=== PATIENT | male | born 1950 | race American Indian/Alaskan Native ===

== ENCOUNTER 2016-12-21 19:38 | Emergency (ER) | payer MEDICARE ==
[2016-12-21 21:19] LABS: Alanine Aminotransferase 15 units/L (7-56); Albumin 4.2 g/dL (3.9-5); Albumin/Globulin Ratio 1.2 %; Alkaline Phosphatase 67 units/L (35-129); Anion Gap 19 mmol/L; BUN/Creatinine Ratio 14.54; Blood Urea Nitrogen 16 mg/dL (9-20); Calcium 9.2 mg/dL (8.4-10.2); Carbon Dioxide 24 mmol/L (22-30); Chloride 102.5 mmol/L (98-107); Glucose 119 mg/dL (75-100); Potassium 4.6 mmol/L (3.6-5.0); Sodium 141 mmol/L (137-145); Total Protein 7.6 g/dL (6.3-8.2)
--- NOTE | 2016-12-21 21:20 | XRay Report ---
FINAL REPORT EXAM: XR CHEST 1V AP HISTORY: Medical Clearance Psych TECHNIQUE: upright single view chest PRIORS: None. FINDINGS: Cardiac and mediastinal contours are unremarkable. No focal pulmonary infiltrate is identified. No pleural fluid collection seen. Pulmonary vasculature is unremarkable. IMPRESSION: Negative single-view chest
[2016-12-21 21:28] LABS: Basophils % (Auto) 0.6 % (0.0-1.8); Eosinophils % (Auto) 3.8 % (0.0-4.3); Hematocrit 39.9 % (35.5-45.6); Hemoglobin 13.5 gm/dl (11.8-15.2); Mean Corpuscular HGB Conc 34 % (32-34); Mean Corpuscular Hemoglobin 33 pg (28-32); Mean Corpuscular Volume 97 fl (84-94); Platelet Count 202 K/mm3 (140-440)
[2016-12-22 01:07] LABS: Urine Drugs of Abuse Note Disclamer
[2016-12-22 01:32] LABS: Bilirubin,Urine NEG (Negative); Blood,Urine NEG (Negative); Ketones,Urine NEG (Negative); Leukocyte Esterase,Urine NEG (Negative); Nitrite,Urine NEG (Negative); Protein,Urine <15 mg/dL mg/dL (Negative)
--- NOTE | 2016-12-22 02:37 | Emergency Department Report ---
ED Psych HPI - General Chief Complaint: Psych Stated Complaint: EVALUATION VIOLENT OUTBURST Time Seen by Provider: 12/22/16 01:05 Source: patient Mode of arrival: Ambulatory Limitations: Other - History of Present Illness Initial Comments: 66-year-old male with a past medical history dementia and gud-hfjtmxj-tqglgcizi diabetes presents to the hospital with violent outbursts. Patient appears to be only oriented to self at this time. When asked direct questions he rambles on pulls off due to various tangents. He denies any physical pain. His states that despite taking his medication he continues to have violent outbursts and lunges her. has to lock herself in another room for protection. She said one month ago she had to call the police and he was taken to [facility]. Patient was admitted to [facility] times one week and started on Seroquel 25 mg. Patient continues to have outbursts despite this medication. He was evaluated by outpatient psychiatrist 2 days ago and started on Prozac and Seroquel was increased to 50 mg. There is no improvement in his behavior. also states that in the past patient was on a dementia specific medication when they lived in [place] but she misplaced it. She cannot recall the name of this medication. - Related Data Home Medications Medication Instructions Recorded Confirmed Last Taken FLUoxetine HCL [FLUoxetine] 40 mg PO QAM 12/22/16 12/22/16 Unknown Famotidine [Pepcid] 40 mg PO BID 12/22/16 12/22/16 Unknown Quetiapine Fumarate [SEROquel] 50 mg PO QHS 12/22/16 12/22/16 Unknown metFORMIN [Glucophage] 500 mg PO BID 12/22/16 12/22/16 Unknown Allergies Allergy/AdvReac Type Severity Reaction Status Date / Time No Known Allergies Allergy Unverified 12/21/16 20:16 ED Review of Systems ROS: Stated complaint: EVALUATION VIOLENT OUTBURST Other details as noted in HPI Comment: Unobtainable due to pts medical conditions (dementia, see hpi) ED Past Medical Hx - Past Medical History Previous Medical History?: Yes Hx CVA: Yes (3 small stroke) Hx Psychiatric Treatment: Yes (Dementia; Homicidal) - Surgical History Past Surgical History?: Yes Additional Surgical History: hernia repair - Social History Smoking Status: Never Smoker Substance Use Type: None - Medications Home Medications: Home Medications Medication Instructions Recorded Confirmed Last Taken Type FLUoxetine HCL [FLUoxetine] 40 mg PO QAM 12/22/16 12/22/16 Unknown History Famotidine [Pepcid] 40 mg PO BID 12/22/16 12/22/16 Unknown History Quetiapine Fumarate [SEROquel] 50 mg PO QHS 12/22/16 12/22/16 Unknown History metFORMIN [Glucophage] 500 mg PO BID 12/22/16 12/22/16 Unknown History ED Physical Exam - General Limitations: No Limitations - Other Other exam information: General: No limitations, patient is alert in no acute distress Head exam: Atraumatic, normocephalic Eyes exam: Normal appearance ENT: Moist mucous membrane, normal oropharynx Neck exam: Normal inspection Respiratory exam: Clear to auscultation bilateral, no wheezes, rales, crackles Cardiovascular: Normal rate and rhythm, normal heart sounds Abdomen: Soft, nondistended, and nontender, with normal bowel sounds, no rebound, or guarding Extremity: Full range of motion normal inspection no deformity Back: Normal Inspection, full range of motion, no tenderness Neurologic: Alert, oriented to self, cranial nerves intact, no motor or sensory deficit Psychiatric: Patient had aggressive rambles on unrelated topics. When asked if he knew where he was he stated he was going to your care and they continued talking about [place] but his thought process was difficult to follow. No aggression during examination Skin: Warm, dry, intact ED Course Vital Signs 12/21/16 12/22/16 12/22/16 20:14 00:37 00:40 Temperature 98.2 F 97.6 F Pulse Rate 94 H 97 H Respiratory 18 16 16 Rate Blood Pressure 146/100 Blood Pressure 159/88 [Left] O2 Sat by Pulse 99 99 99 Oximetry - Reevaluation(s) Reevaluation #1: 12/22/16 05:40 pt stable - Consultations Consultation #1: 12/22/16 mh consult ED Medical Decision Making - Lab Data Result diagrams: 12/21/16 20:46 12/21/16 20:46 Lab Results 12/21/16 12/21/16 12/21/16 Range/Units 20:46 20:46 20:46 WBC 7.0 (4.5-11.0) K/mm3 RBC 4.10 (3.65-5.03) M/mm3 Hgb 13.5 (11.8-15.2) gm/dl Hct 39.9 (35.5-45.6) % MCV 97 H (84-94) fl MCH 33 H (28-32) pg MCHC 34 (32-34) % RDW 14.0 (13.2-15.2) % Plt Count 202 (140-440) K/mm3 Lymph % (Auto) 21.9 (13.4-35.0) % [place] % (Auto) 8.8 H (0.0-7.3) % Eos % (Auto) 3.8 (0.0-4.3) % Baso % (Auto) 0.6 (0.0-1.8) % Lymph # 1.5 (1.2-5.4) K/mm3 [place] # 0.6 (0.0-0.8) K/mm3 Eos # 0.3 (0.0-0.4) K/mm3 Baso # 0.0 (0.0-0.1) K/mm3 Seg Neutrophils % 64.9 (40.0-70.0) % Seg Neutrophils # 4.5 (1.8-7.7) K/mm3 Sodium 141 (137-145) mmol/L Potassium 4.6 (3.6-5.0) mmol/L Chloride 102.5 (98-107) mmol/L Carbon Dioxide 24 (22-30) mmol/L Anion Gap 19 mmol/L BUN 16 (9-20) mg/dL Creatinine 1.1 (0.8-1.5) mg/dL Estimated GFR > 60 ml/min BUN/Creatinine Ratio 14.54 % Glucose 119 H (75-100) mg/dL Calcium 9.2 (8.4-10.2) mg/dL Total Bilirubin 0.50 (0.1-1.2) mg/dL AST 21 (5-40) units/L ALT 15 (7-56) units/L Alkaline Phosphatase 67 (35-129) units/L Total Protein 7.6 (6.3-8.2) g/dL Albumin 4.2 (3.9-5) g/dL Albumin/Globulin Ratio 1.2 % TSH 2.840 (0.270-4.200) mlU/mL Urine Color (Yellow) Urine Turbidity (Clear) Urine pH (5.0-7.0) Ur Specific [place] (1.003-1.030) Urine Protein (Negative) mg/dL Urine Glucose (UA) (Negative) mg/dL Urine Ketones (Negative) mg/dL Urine Blood (Negative) Urine Nitrite (Negative) Urine Bilirubin (Negative) Urine Urobilinogen (<2.0) mg/dL Ur Leukocyte Esterase (Negative) Urine WBC (Auto) (0.0-6.0) /HPF Urine RBC (Auto) (0.0-6.0) /HPF U Epithel Cells (Auto) (0-13.0) /HPF Urine Opiates Screen Urine Methadone Screen Ur Barbiturates Screen Ur Phencyclidine Scrn Ur Amphetamines Screen U Benzodiazepines Scrn Urine Cocaine Screen U Marijuana (THC) Screen Drugs of Abuse Note 12/22/16 12/22/16 Range/Units 00:57 00:57 WBC (4.5-11.0) K/mm3 RBC (3.65-5.03) M/mm3 Hgb (11.8-15.2) gm/dl Hct (35.5-45.6) % MCV (84-94) fl MCH (28-32) pg MCHC (32-34) % RDW (13.2-15.2) % Plt Count (140-440) K/mm3 Lymph % (Auto) (13.4-35.0) % [place] % (Auto) (0.0-7.3) % Eos % (Auto) (0.0-4.3) % Baso % (Auto) (0.0-1.8) % Lymph # (1.2-5.4) K/mm3 [place] # (0.0-0.8) K/mm3 Eos # (0.0-0.4) K/mm3 Baso # (0.0-0.1) K/mm3 Seg Neutrophils % (40.0-70.0) % Seg Neutrophils # (1.8-7.7) K/mm3 Sodium (137-145) mmol/L Potassium (3.6-5.0) mmol/L Chloride (98-107) mmol/L Carbon Dioxide (22-30) mmol/L Anion Gap mmol/L BUN (9-20) mg/dL Creatinine (0.8-1.5) mg/dL Estimated GFR ml/min BUN/Creatinine Ratio % Glucose (75-100) mg/dL Calcium (8.4-10.2) mg/dL Total Bilirubin (0.1-1.2) mg/dL AST (5-40) units/L ALT (7-56) units/L Alkaline Phosphatase (35-129) units/L Total Protein (6.3-8.2) g/dL Albumin (3.9-5) g/dL Albumin/Globulin Ratio % TSH (0.270-4.200) mlU/mL Urine Color Yellow (Yellow) Urine Turbidity Clear (Clear) Urine pH 5.0 (5.0-7.0) Ur Specific [place] 1.021 (1.003-1.030) Urine Protein <15 mg/dl (Negative) mg/dL Urine Glucose (UA) Neg (Negative) mg/dL Urine Ketones Neg (Negative) mg/dL Urine Blood Neg (Negative) Urine Nitrite Neg (Negative) Urine Bilirubin Neg (Negative) Urine Urobilinogen 2.0 (<2.0) mg/dL Ur Leukocyte Esterase Neg (Negative) Urine WBC (Auto) 2.0 (0.0-6.0) /HPF Urine RBC (Auto) 1.0 (0.0-6.0) /HPF U Epithel Cells (Auto) 2.0 (0-13.0) /HPF Urine Opiates Screen Presumptive negative Urine Methadone Screen Presumptive negative Ur Barbiturates Screen Presumptive negative Ur Phencyclidine Scrn Presumptive negative Ur Amphetamines Screen Presumptive negative U Benzodiazepines Scrn Presumptive negative Urine Cocaine Screen Presumptive negative U Marijuana (THC) Screen Presumptive negative Drugs of Abuse Note Disclamer - Medical Decision Making WIll continued home meds. 1013 and transferred form signed. Awaiting psychiatric symptoms. Medically cleared - Differential Diagnosis psychosis, dementia Critical Care Time: No Critical care attestation.: If time is entered above; I have spent that time in minutes in the direct care of this critically ill patient, excluding procedure time. ED Disposition Clinical Impression: Dementia, Violent behavior, Medical clearance for psychiatric admission, Non- insulin dependent type 2 diabetes mellitus Disposition: DC/TX-65 PSY HOSP/PSY UNIT Is pt being admited?: No Does the pt Need Aspirin: No Condition: Stable Time of Disposition: 05:41 (awaiting acceptance)
[2016-12-22] MEDS: PEPCID PO SCH (10:30)
[2016-12-22] MEDS: PROzac PO SCH (10:30)
[2016-12-22] MEDS: GLUCOPHAGE PO SCH ×2 (10:42→17:51)
--- NOTE | 2016-12-22 18:16 | Consultation ---
History of Present Illness - Reason for Consult Consult date: 12/22/16 Reason for consult: Mental Health Evaluation Requesting physician: ORIANA US - Chief Complaint Chief complaint: "AMS" - History of Present Psychiatric Illness 66-year-old male with a past medical history dementia and oof-impgpco-tjeitvhae diabetes presents to the hospital with violent outbursts. Today patient is disorganized and confused during the assessment. Patient is a poor historian. No gestures of SI/HI's and AVH's. Medications and Allergies Allergies Allergy/AdvReac Type Severity Reaction Status Date / Time No Known Allergies Allergy Unverified 12/21/16 20:16 Home Medications Medication Instructions Recorded Confirmed Last Taken Type FLUoxetine HCL [FLUoxetine] 40 mg PO QAM 12/22/16 12/22/16 Unknown History Famotidine [Pepcid] 40 mg PO BID 12/22/16 12/22/16 Unknown History Quetiapine Fumarate [SEROquel] 50 mg PO QHS 12/22/16 12/22/16 Unknown History metFORMIN [Glucophage] 500 mg PO BID 12/22/16 12/22/16 Unknown History Active Meds: Active Medications Famotidine (Pepcid) 40 mg PO BID [facility] Last Admin: 12/22/16 10:30 Dose: 40 mg Fluoxetine HCl (Prozac) 40 mg PO QAM [facility] Last Admin: 12/22/16 10:30 Dose: 40 mg Metformin HCl (Glucophage) 500 mg PO BIDDIAB [facility] Last Admin: 12/22/16 17:51 Dose: 500 mg Quetiapine Fumarate (Seroquel) 50 mg PO QHS [facility] Past psychiatric history - Past Medical History Past Medical History: other (Dementia) Past Surgical History: Other (Unable to obtain) - past Psychiatric treatment and history psychiatric treatment history: Unable to obtain a psy or fam psy hx. - Social History Social history: Mental Status Exam - Vital signs Last Vital Signs Temp 98.1 F 12/22/16 09:32 Pulse 116 H 12/22/16 09:32 Resp 16 12/22/16 09:33 BP 138/96 12/22/16 09:32 Pulse Ox 98 12/22/16 09:33 - Exam Narrative exam: Unable to compete the MSE. Results Result Diagrams: 12/21/16 20:46 12/21/16 20:46 Abnormal lab results 12/21/16 12/21/16 Range/Units 20:46 20:46 MCV 97 H (84-94) fl MCH 33 H (28-32) pg [place] % (Auto) 8.8 H (0.0-7.3) % Glucose 119 H (75-100) mg/dL All other labs normal. Assessment and Plan Assessment and plan: Impression: Historical Dx: Dementia. Today patient is disorganized and confused during the assessment. UDS negative Recommendation/Plan: 1. Frequently reorient patient and involve him/her in their care (simple explanations of procedures, tests, medications). 2. Lights on and shades open during daytime hours. 3. Try to avoid unnecessary interruptions to sleep during nighttime hours. 4. Obtain glasses, hearing aids from home if patient uses these at baseline. 5. Avoid medications that may exacerbate delirium (especially narcotics, benzodiazepines, barbiturates, ambien, lunesta, and medications with excessive anticholinergic properties).Bipolar disorder most recent episode depressed. 6. Haldol 2 mg PO Q6hrs for agitation.
[2016-12-22] MEDS ORDERED: HALDOL PO PRN (18:27)
[2016-12-23] MEDS: GLUCOPHAGE PO SCH (08:46)
[2016-12-23] MEDS: PEPCID PO SCH (10:24)
[2016-12-23] MEDS: PROzac PO SCH (10:24)
[2016-12-23 11:20] VITALS: BP 152/95
--- NOTE | 2016-12-23 15:11 | Progress Note ---
Subjective - Reason for Consult Consult date: 12/23/16 Reason for consult: Psychiatry Follow-up - Chief Complaint Chief complaint: "AMS" 66-year-old male with a past medical history dementia and [id number]-[id number] diabetes presents to the hospital with violent outbursts. Today patient was calm , but disorganized and delusional. He stated that his and son was in the [place] during our conversation. No gestures of SI/HI's. Spoke with Guerda Carter [phone] and she stated that patient was dx last year with dementia. She wasn't able to tell me the medications her took for dementia. Mental Status Exam - Vital signs Last Vital Signs Temp 99.2 F 12/23/16 11:18 Pulse 90 12/23/16 11:18 Resp 20 12/23/16 11:19 BP 152/95 12/23/16 11:18 Pulse Ox 97 12/23/16 11:19 - Exam Narrative exam: MSE: Appearance: calm Behavior: regular eye contact Speech: rumbling Mood: unable to assess Affect: flat Thought Process: tangential Thought Content: denies SI/HI's and AVH's, delusional, disorganize Motor Activity: lying in bed Cognition: A/Ox 1 Insight: impaired Judgment: impaired Assessment and Plan Impression: Historical Dx: Dementia. Today patient was calm, but disorganized and delusional. UDS negative. This is an irreversible Neurocognitive DO. Recommendation/Plan: Give Guerda Carter [phone] a call before patient is transferred. 1. Frequently reorient patient and involve him/her in their care (simple explanations of procedures, tests, medications). 2. Lights on and shades open during daytime hours. 3. Try to avoid unnecessary interruptions to sleep during nighttime hours. 4. Obtain glasses, hearing aids from home if patient uses these at baseline. 5. Avoid medications that may exacerbate delirium (especially narcotics, benzodiazepines, barbiturates, ambien, lunesta, and medications with excessive anticholinergic properties).Bipolar disorder most recent episode depressed. 6. Haldol 2 mg PO Q6hrs for agitation.
== END 2016-12-23 16:45 ==
LOC: ED 19:38
DX: F03.90 Unspecified dementia, unspecified severity, without behavioral disturbance, psychotic disturbance, mood disturbance, and anxiety (principal); R45.6 Violent behavior; E11.9 Type 2 diabetes mellitus without complications; I63.9 Cerebral infarction, unspecified
CPT/HCPCS: 36415; 71010; 80053; 80307; 81001; 84443; 85025

== ENCOUNTER 2017-01-14 13:15 | Emergency (ER) | payer MEDICARE ==
[2017-01-14 15:23] LABS: Alanine Aminotransferase 14 units/L (7-56); Albumin 4.5 g/dL (3.9-5); Albumin/Globulin Ratio 1.1 %; Alkaline Phosphatase 68 units/L (35-129); Anion Gap 20 mmol/L; BUN/Creatinine Ratio 14.16; Blood Urea Nitrogen 17 mg/dL (9-20); Calcium 9.7 mg/dL (8.4-10.2); Carbon Dioxide 27 mmol/L (22-30); Chloride 94.8 mmol/L (98-107); Glucose 100 mg/dL (75-100); Potassium 4.3 mmol/L (3.6-5.0); Sodium 137 mmol/L (137-145); Total Protein 8.5 g/dL (6.3-8.2)
[2017-01-14 15:57] LABS: Basophils % (Auto) 0.5 % (0.0-1.8); Eosinophils % (Auto) 5.1 % (0.0-4.3); Hematocrit 48.6 % (35.5-45.6); Hemoglobin 16.7 gm/dl (11.8-15.2); Mean Corpuscular HGB Conc 34 % (32-34); Mean Corpuscular Hemoglobin 33 pg (28-32); Mean Corpuscular Volume 97 fl (84-94); Platelet Count 219 K/mm3 (140-440); Red Blood Count 5.01 M/mm3 (3.65-5.03); Red Cell Distribution Width 13.6 % (13.2-15.2); White Blood Count 7.8 K/mm3 (4.5-11.0)
[2017-01-14] MEDS ORDERED: HALDOL IM ONE (16:52)
--- NOTE | 2017-01-14 16:57 | Emergency Department Report ---
HPI - General Chief Complaint: Medical Clearance Time Seen by Provider: 01/14/17 15:25 - HPI HPI: 66-year-old -Citizen Of The [place] male presents the emergency department with his with the complaint that the patient is not eating and has not eaten much solid food over the past 2 weeks. Patient apparently will only intake about 1 Ensure per day. He does have a history of dementia and was recently at [facility] for behavioral disturbance. He was discharged from there on medication, Haldol and Ativan. says that he's been doing very well regarding the behavioral disturbances and aggressive behavior but she brought him in because he is not eating. She contacted psychiatrist to at first prescribed higher doses of the medication but then also said that he needed to be medically cleared to take these medications. He does not have a current primary care physician. ED Past Medical Hx - Past Medical History Previous Medical History?: Yes Hx CVA: Yes (3 small stroke) Hx Psychiatric Treatment: Yes (Dementia; Homicidal) Hx Dementia: Yes - Surgical History Past Surgical History?: Yes Additional Surgical History: hernia repair - Social History Smoking Status: Never Smoker Substance Use Type: None - Medications Home Medications: Home Medications Medication Instructions Recorded Confirmed Last Taken Type FLUoxetine HCL [FLUoxetine] 40 mg PO QAM 12/22/16 12/22/16 Unknown History Famotidine [Pepcid] 40 mg PO BID 12/22/16 12/22/16 Unknown History Quetiapine Fumarate [SEROquel] 50 mg PO QHS 12/22/16 12/22/16 Unknown History metFORMIN [Glucophage] 500 mg PO BID 12/22/16 12/22/16 Unknown History ED Review of Systems ROS: Stated complaint: NOT EATING Other details as noted in HPI Comment: Unobtainable due to pts medical conditions Physical Exam - Physical Exam Vital Signs: Vital Signs 01/14/17 14:22 Temperature 98 F Pulse Rate 71 Respiratory 16 Rate Blood Pressure 116/68 O2 Sat by Pulse 100 Oximetry Physical Exam: GENERAL: The patient is well-developed well-nourished. HEENT: Normocephalic. Atraumatic. Extraocular motions are intact. Patient has moist mucous membranes. Pupils equal reactive to light bilaterally. NECK: Supple. Trachea is midline. CHEST/LUNGS: Clear to auscultation. There is no respiratory distress noted. HEART/CARDIOVASCULAR: Regular. There is no tachycardia. There is no gallop rub or murmur. ABDOMEN: Abdomen is soft, nontender. Patient has normal bowel sounds. There is no abdominal distention. SKIN: Skin is warm and dry. NEURO: The patient is awake, a [address] but not time. He has some tangential speech towards [place], where he is from. Patient follows most commands. The patient has no focal neurologic deficits. The patient has normal speech and gait. MUSCULOSKELETAL: There is no tenderness or deformity. There is no limitation range of motion. There is no evidence of acute injury. ED Course Vital Signs 01/14/17 14:22 Temperature 98 F Pulse Rate 71 Respiratory 16 Rate Blood Pressure 116/68 O2 Sat by Pulse 100 Oximetry ED Medical Decision Making - Lab Data Result diagrams: 01/14/17 15:47 01/14/17 14:47 - Medical Decision Making 66-year-old male presents the emergency department, brought in by his , because he is not eating much other than occasional Ensure. Labs are mostly unremarkable dehydration, protein calorie malnutrition or any other acute process at this time. He was seen by the behavioral/crisis therapist who agrees that the patient's behavior is consistent with dementia and he does not appear to be having any psychosis and does not appear to be a candidate be made a 1013 at this time. Vital stable. His ED course. With this patient mostly needs is a placement to a nursing care facility. However the says she is unwilling to have him go to any extended care or nursing care facility at this time. She is concerned how he is going to take his medication. He was given 1 dose of the medication here in the emergency department and is recommended that she put it in his Ensure. He was given multiple referrals for primary care physicians and encouraged to follow-up with the psychiatrist as well. To make sure he does not go back towards his behavioral disturbances. However she has been encouraged bring him back to the emergency department immediately with any worsening of his symptoms, inability to keep down any liquids, or any acute distress. Critical Care Time: No Critical care attestation.: If time is entered above; I have spent that time in minutes in the direct care of this critically ill patient, excluding procedure time. ED Disposition Clinical Impression: Decreased appetite Dementia Qualifiers: Dementia type: unspecified type Dementia behavioral disturbance: without behavioral disturbance Qualified Code(s): F03.90 - Unspecified dementia without behavioral disturbance Disposition: DC-01 TO HOME OR SELFCARE Is pt being admited?: No Condition: Stable Instructions: Dementia (ED) Additional Instructions: Please continue to give him ensure a few times a day if possible. If necessary , but his medication in the Ensure. Continue to encourage him to increase his oral intake. Return to the emergency department with any worsening of symptoms or any acute distress. It should be noted that the labs obtained today in the emergency department do not show any signs of dehydration, malnutrition or any significant abnormalities. Referrals: PRIMARY CARE, [Primary Care Provider] - 3-5 Days VANDANA TATUM MD, PHD [Staff Physician] - 3-5 Days JO GONZALEZ MD [Staff Physician] - 3-5 Days MONSERRAT RODRIGUEZ MD [Staff Physician] - 3-5 Days Time of Disposition: 16:59
[2017-01-14 17:47] VITALS: BP 120/68
== END 2017-01-14 17:25 | disposition home or self-care (01) ==
LOC: ED 13:15
DX: R63.0 Anorexia (principal); F03.90 Unspecified dementia, unspecified severity, without behavioral disturbance, psychotic disturbance, mood disturbance, and anxiety; Z86.73 Personal history of transient ischemic attack (TIA), and cerebral infarction without residual deficits
CPT/HCPCS: 36415; 80053; 82962; 85025; 96372; 99284; J1630

== ENCOUNTER 2017-01-16 23:14 | Inpatient (IN) | payer MEDICARE ==
[2017-01-16] MEDS ORDERED: NACL 0.9% 1000 ML 1,000 ML ONE (23:56)
[2017-01-17] MEDS ORDERED: ATIVAN ONE (00:04)
[2017-01-17] MEDS ORDERED: ATIVAN IV ONE (00:09)
--- NOTE | 2017-01-17 00:21 | Emergency Department Report ---
HPI - General Chief Complaint: Altered Mental Status Time Seen by Provider: 01/17/17 00:09 - HPI HPI: This is a 66-year-old Afro-[place] male presents the emergency department from home with complaint of a unresponsive episode in which the patient was awake with eyes open but was nonverbal and not following commands to his . The patient does have a history of dementia but usually is AAO 1-2. He appears to have gone back towards his normal baseline mental status upon presentation to the hospital. There were no complaints of any fever but the patient did present with a low-grade fever. Due to the patient's current medical status and his history of dementia he is a poor historian himself. The patient was recently here 2-3 days ago when the was having trouble getting him to eat enough food and therefore also take his medications. Before that the patient had been at [facility] for behavioral disturbances. ED Past Medical Hx - Past Medical History Hx CVA: Yes (3 small stroke) Hx Psychiatric Treatment: Yes (Dementia; Homicidal) Hx Dementia: Yes - Surgical History Additional Surgical History: hernia repair - Social History Smoking Status: Never Smoker Substance Use Type: None - Medications Home Medications: Home Medications Medication Instructions Recorded Confirmed Last Taken Type FLUoxetine HCL [FLUoxetine] 40 mg PO QAM 12/22/16 01/16/17 Unknown History Famotidine [Pepcid] 40 mg PO BID 12/22/16 01/16/17 Unknown History Quetiapine Fumarate [SEROquel] 50 mg PO QHS 12/22/16 01/16/17 Unknown History metFORMIN [Glucophage] 500 mg PO BID 12/22/16 01/16/17 Unknown History Aricept 5 mg PO HS 01/16/17 01/16/17 Unknown History Folic Acid 1 mg PO DAILY 01/16/17 01/16/17 Unknown History Haloperidol 0.25 mg PO HS 01/16/17 01/16/17 Unknown History LORazepam 0.5 mg PO BID 01/16/17 01/16/17 Unknown History Memantine HCl 10 mg PO BID 01/16/17 01/16/17 Unknown History amLODIPine 5 mg PO DAILY 01/16/17 01/16/17 Unknown History ED Review of Systems ROS: Stated complaint: AMS/FEVER Other details as noted in HPI Comment: Unobtainable due to pts medical conditions Physical Exam - Physical Exam Vital Signs: Vital Signs 01/16/17 23:43 Temperature 100.6 F H Pulse Rate 115 H Respiratory 16 Rate Blood Pressure 106/73 O2 Sat by Pulse 98 Oximetry Physical Exam: GENERAL: The patient is well-developed well-nourished. HEENT: Normocephalic. Atraumatic. Extraocular motions are intact. Patient has moist mucous membranes. Pupils equal reactive to light bilaterally. NECK: Supple. Trachea is midline. CHEST/LUNGS: Clear to auscultation. There is no respiratory distress noted. HEART/CARDIOVASCULAR: Regular. There is mild tachycardia. There is no gallop rub or murmur. ABDOMEN: Abdomen is soft, nontender. Patient has normal bowel sounds. There is no abdominal distention. SKIN: Skin is warm and dry. NEURO: The patient is awake, alert. AAO [address] but not time. The patient has no focal neurologic deficits. Patient has pressured speech and occasional behavioral outbursts. MUSCULOSKELETAL: There is no tenderness or deformity. There is no limitation range of motion. There is no evidence of acute injury. ED Course Vital Signs 01/16/17 23:43 Temperature 100.6 F H Pulse Rate 115 H Respiratory 16 Rate Blood Pressure 106/73 O2 Sat by Pulse 98 Oximetry ED Medical Decision Making - Lab Data Result diagrams: 01/17/17 00:16 01/17/17 00:16 - EKG Data -: EKG Interpreted by Me EKG shows normal: sinus rhythm, axis, intervals, QRS complexes, ST-T waves ( nonspecific ST-T waves) Rate: tachycardia (109 bpm) - EKG Data When compared to previous EKG there are: previous EKG unavailable Interpretation: nonspecific ST-T wave jesus - Radiology Data Radiology results: report reviewed, image reviewed interpreted by me: Chest x-ray did not show any acute process. Heart is normal shape and size. No effusions. No pneumothorax. No signs of pneumonia seen. CT of the head shows chronic involutional changes but otherwise no acute intracranial process. - Medical Decision Making 66-year-old male presents to the emergency department after he was found to have an unresponsive episode by his . By the time he got to the emergency department he has back to his normal dementia behavior. However patient has a fever, tachycardia, leukocytosis, lactic acidosis. There is no source of infection found yet but he does have SIRS. He was covered with some antibiotics and blood cultures were sent. CT of the head does not show any bleed, shift, mass or any acute process. Chest x-ray does not show any pneumonia or any other acute process. He will be admitted to the hospital for further evaluation and treatment and has been accepted for admission by the hospitalist, Dr Holloway. - Differential Diagnosis Sepsis, SIRS, Dementia, CVA, TIA Critical Care Time: No Critical care attestation.: If time is entered above; I have spent that time in minutes in the direct care of this critically ill patient, excluding procedure time. ED Disposition Clinical Impression: Lactic acidosis, SIRS (systemic inflammatory response syndrome) Altered mental status Qualifiers: Altered mental status type: unspecified Qualified Code(s): R41.82 - Altered mental status, unspecified Dementia Qualifiers: Dementia type: unspecified type Dementia behavioral disturbance: without behavioral disturbance Qualified Code(s): F03.90 - Unspecified dementia without behavioral disturbance Leukocytosis Qualifiers: Leukocytosis type: unspecified Qualified Code(s): D72.829 - Elevated white blood cell count, unspecified Disposition: DC-09 OP ADMIT IP TO THIS HOSP Is pt being admited?: Yes Condition: Fair Time of Disposition: 02:35
[2017-01-17] MEDS ORDERED: TYLENOL PR ONE (00:23)
[2017-01-17 00:37] LABS: Urine Drugs of Abuse Note Disclamer
[2017-01-17 00:49] LABS: Hematocrit 40.5 % (35.5-45.6); Hemoglobin 13.2 gm/dl (11.8-15.2); Mean Corpuscular HGB Conc 33 % (32-34); Mean Corpuscular Hemoglobin 33 pg (28-32); Mean Corpuscular Volume 100 fl (84-94); Platelet Count 156 K/mm3 (140-440); Red Blood Count 4.05 M/mm3 (3.65-5.03); Red Cell Distribution Width 13.9 % (13.2-15.2)
--- NOTE | 2017-01-17 00:59 | Cat Scan Report ---
FINAL REPORT PROCEDURE: CT HEAD/BRAIN WO CON TECHNIQUE: Computerized tomography of the head was performed without contrast material. HISTORY: AMS COMPARISON: No prior studies are available for comparison. FINDINGS: Skull and scalp: Normal. Paranasal sinuses: Normal. Ventricles and subarachnoid spaces: There is moderate central and cortical atrophy. There is no hydrocephalus or asymmetry.. Cerebrum: No evidence of hemorrhage, acute infarction or mass. There is chronic periventricular deep white matter ischemic gliosis. Cerebellum and brainstem: No evidence of hemorrhage, acute infarction or mass. Vasculature: Normal. Comments: None. IMPRESSION: There are chronic involutional changes. There is no acute intracranial abnormality
[2017-01-17 01:05] LABS: Alanine Aminotransferase 11 units/L (7-56); Albumin 3.5 g/dL (3.9-5); Albumin/Globulin Ratio 1.3 %; Alkaline Phosphatase 49 units/L (35-129); Anion Gap 18 mmol/L; BUN/Creatinine Ratio 15.38; Blood Urea Nitrogen 20 mg/dL (9-20); Calcium 8.3 mg/dL (8.4-10.2); Carbon Dioxide 24 mmol/L (22-30); Glucose 134 mg/dL (75-100); Potassium 3.9 mmol/L (3.6-5.0); Sodium 139 mmol/L (137-145); Total Protein 6.3 g/dL (6.3-8.2)
[2017-01-17 01:05] LABS: Bilirubin,Urine NEG (Negative); Blood,Urine NEG (Negative); Ketones,Urine TR mg/dL (Negative); Leukocyte Esterase,Urine NEG (Negative); Mucus,Urine 3+ /HPF; Nitrite,Urine NEG (Negative); Protein,Urine <15 mg/dL mg/dL (Negative); RBC,Urine < 1.0 /HPF (0.0-6.0); WBC,Urine < 1.0 /HPF (0.0-6.0)
[2017-01-17] MEDS ORDERED: LEVAQUIN 750MG/150ML 750 MG/150 ML BAG IV ONE (02:12)
[2017-01-17] MEDS ORDERED: NACL 0.9% 1000 ML 1,000 ML IV ONE (02:25)
[2017-01-17] MEDS ORDERED: TYLENOL PO PRN (03:22)
[2017-01-17] MEDS ORDERED: VANCOMYCIN VIAL IV ONE (03:25)
[2017-01-17] MEDS ORDERED: ZOSYN/NS 4.5GM/100ML 4.5 GM/100 ML VIAL IV SCH (03:26)
[2017-01-17] MEDS ORDERED: ZOSYN/NS 4.5GM/100ML 4.5 GM/100 ML VIAL IV ONE (03:44)
[2017-01-17] MEDS ORDERED: NACL 0.9% 1000 ML 1,000 ML IV SCH (04:00)
[2017-01-17] MEDS ORDERED: VANCOMYCIN PHARMACY TO DOSE IV SCH (04:00)
[2017-01-17] MEDS ORDERED: VANCOMYCIN 1,750 MG in NACL 0.9% 500 ML 500 ML IV ONE (04:00)
[2017-01-17] MEDS: ZOSYN/NS 4.5GM/100ML 4.5 GM/100 ML VIAL IV SCH ×2 (04:01→14:00)
[2017-01-17 04:26] LABS: Anisocytosis 1+; Basophils % (Manual) 0 % (0.0-1.8); Blastocytes % (Manual) 0 %; Diff Status Complete; Eosinophils % (Manual) 0 % (0.0-4.3); Hypochromasia Few
[2017-01-17 04:27] LABS: Toxic Granulation Few
--- NOTE | 2017-01-17 09:10 | XRay Report ---
Single view chest: Compared to 12/21/16. History: Fevers unknown source. Findings: Normal cardiomediastinal silhouette. Trachea is midline. No consolidation, pneumothorax or pleural effusion. Impression: No acute cardiopulmonary findings.
--- NOTE | 2017-01-17 09:31 | History and Physical Report ---
History of Present Illness Date of examination: 01/17/17 Date of admission: 01/17/17 02:35 History of present illness: This is a 66-year-old Afro-[place] male presents the emergency department from home with complaint of a unresponsive episode in which the patient was awake with eyes open but was nonverbal and not following commands to his . The patient does have a history of dementia and oriented to person only. He was at [facility] recently and was discharge back to home about a week ago. According to the he was getting aggresive and she was not able to give him any medication. She stated that his oral intake also very poor now a days and only preferring liquid food. According to he was complaining of abdominal pain but no episode of vomiting. When he was presented to the hospital He appears to have gone back towards his normal baseline mental status but continue to be confused and agitated. There were no complaints of any fever but the patient did present with a low-grade fever. Due to the patient's current medical status and his history of dementia he is a poor historian himself. He also noted to have elevated white count, he is getting admitted for further evaluation and management. Past medical History: h/o dementia, TIA Past surgical History: s/p right hernea repair Social History: Lives with family, denies any smoking, drinking and elicit drug abuse. Family History: Significant for dementia Review of System: Unable to obtain as patient is demented, confused, aggressive. Medications and Allergies Allergies Allergy/AdvReac Type Severity Reaction Status Date / Time No Known Allergies Allergy Unverified 12/21/16 20:16 Home Medications Medication Instructions Recorded Confirmed Last Taken Type FLUoxetine HCL [FLUoxetine] 40 mg PO QAM 12/22/16 01/16/17 Unknown History Famotidine [Pepcid] 40 mg PO BID 12/22/16 01/16/17 Unknown History Quetiapine Fumarate [SEROquel] 50 mg PO QHS 12/22/16 01/16/17 Unknown History metFORMIN [Glucophage] 500 mg PO BID 12/22/16 01/16/17 Unknown History Aricept 5 mg PO HS 01/16/17 01/16/17 Unknown History Folic Acid 1 mg PO DAILY 01/16/17 01/16/17 Unknown History Haloperidol 0.25 mg PO HS 01/16/17 01/16/17 Unknown History LORazepam 0.5 mg PO BID 01/16/17 01/16/17 Unknown History Memantine HCl 10 mg PO BID 01/16/17 01/16/17 Unknown History amLODIPine 5 mg PO DAILY 01/16/17 01/16/17 Unknown History Active Meds: Active Medications Acetaminophen (Tylenol) 650 mg PO Q6H PRN PRN Reason: fever or mild pain Famotidine (Pepcid) 20 mg IV BID [facility] Heparin Sodium (Porcine) (Heparin) 5,000 unit SUB-Q Q12HR [facility] Sodium Chloride (Nacl 0.9% 1000 Ml) 1,000 mls @ 75 mls/hr IV DIRECT [facility] Last Admin: 01/17/17 04:34 Dose: 75 mls/hr Piperacillin Sod/Tazobactam Sod (Zosyn/Ns 4.5gm/100ml) 4.5 gm in 100 mls @ 200 mls/hr IV Q8H [facility] PRN Reason: Protocol Last Admin: 01/17/17 04:01 Dose: Not Given Vancomycin HCl 1,250 mg/ (Sodium Chloride) 262.5 mls @ 166.667 mls/hr IV Q12H [facility] Vancomycin HCl (Vancomycin Pharmacy To Dose) 1 each IV PKCONSULT [facility] PRN Reason: Protocol Exam - Physical Exam Narrative exam: GENERAL: This is well-developed well-nourished AAM appears restrained. HEENT: Normocephalic. Atraumatic. Extraocular motions are intact. No conjunctival congestion or icterus. Patient has moist mucous membranes. External auditory canal and nares patent bilaterally. NECK: Supple. Trachea midline. No JVD, thyromagaly or lymphadenopathy. CHEST/LUNGS: Clear to auscultated bilaterally. There is no respiratory distress noted, breathing nonlabored. No wheezes crackles or rhonchi. HEART/CARDIOVASCULAR: Regular in rate and rhythm. PMI at the apex. There is no gallop rub or murmur. ABDOMEN: Abdomen is soft, nontender. Patient has normal bowel sounds. There is no abdominal distention. No organomagaly or rigidity. SKIN: There is no rash, no erythrema. There is no diaphoresis. Warm and dry. NEUROLOGY: The patient is awake, alert, and oriented to person only. does not appera to have any focal motor deficit. MUSCULOSKELETAL: No joint effusion or tenderness. Muscle strength equal bilaterally. No muscle wasting. EXTRIMITY: No edema, cyanosis or clubbing. PSYCH: Not Cooperative, agitated and restrained. - Constitutional Vitals: Temp Pulse Resp BP Pulse Ox 98.9 F 57 L 20 106/59 100 01/17/17 04:45 01/17/17 04:45 01/17/17 06:24 01/17/17 04:45 01/17/17 03:00 Results - Labs CBC & Chem 7: 01/18/17 09:48 01/18/17 09:48 Labs: Abnormal lab results 01/17/17 Range/Units 02:47 Lactic Acid 3.00 H* (0.7-2.0) mmol/L Assessment and Plan Acute encephalopathy - could be due to dementia and underlying infection - will treat the underlying cause - Ct head was unremarkable - patient is now on restrain - haldol ordered for as needed agitation Dementia with behavioral disturbance - will resume his home medications - placed on aricept and exelon - as needed haldol for agitation - psych consult placed SIRS - pt had low grade temp, elevated white count and tachycardia on admission - source of infection unknown - CXR clear, UA unremarkable - will place on empiric abx, will get blood cx and urine cx Abdominal pain - will order CT abdomen/pelvis Poor appetite - will place on full liquid diet as he prefers liquid food - will get nutrition consult DVT/GI Px - lovenox and PPI
[2017-01-17] MEDS: HEPARIN SUB-Q SCH ×2 (11:06→22:00)
[2017-01-17] MEDS: PEPCID IV SCH (13:10)
[2017-01-17] MEDS: VANCOMYCIN 1,250 MG in NACL 0.9% 250ML 250 ML IV SCH (16:49)
[2017-01-17] MEDS: HALDOL IM PRN (17:21)
[2017-01-17] MEDS: ARICEPT PO SCH (22:00)
[2017-01-17] MEDS ORDERED: MEMANTINE HCL 10 MG PO SCH (22:00)
[2017-01-17] MEDS: ATIVAN PO SCH (22:00)
[2017-01-17] MEDS: HALDOL PO SCH (22:00)
[2017-01-17] MEDS ORDERED: HALOPERIDOL PO SCH (22:00)
[2017-01-18] MEDS: PEPCID IV SCH (00:10)
[2017-01-18] MEDS: VANCOMYCIN 1,250 MG in NACL 0.9% 250ML 250 ML IV SCH (02:54)
[2017-01-18] MEDS: HALDOL IM PRN (08:55)
[2017-01-18] MEDS: ATIVAN PO SCH ×2 (11:00→22:43)
[2017-01-18] MEDS: NAMENDA XR PO SCH (11:00)
[2017-01-18] MEDS: HEPARIN SUB-Q SCH ×2 (11:00→22:43)
[2017-01-18] MEDS: PEPCID PO SCH ×2 (11:24→22:43)
[2017-01-18 12:01] LABS: Hematocrit 40.2 % (35.5-45.6); Hemoglobin 13.2 gm/dl (11.8-15.2); Mean Corpuscular HGB Conc 33 % (32-34); Mean Corpuscular Hemoglobin 33 pg (28-32); Mean Corpuscular Volume 99 fl (84-94); Platelet Count 155 K/mm3 (140-440); Red Blood Count 4.06 M/mm3 (3.65-5.03); Red Cell Distribution Width 13.7 % (13.2-15.2); White Blood Count 16.4 K/mm3 (4.5-11.0)
[2017-01-18] MEDS: ZOSYN/NS 4.5GM/100ML 4.5 GM/100 ML VIAL IV SCH ×3 (12:25→12:26)
--- NOTE | 2017-01-18 12:34 | Progress Note ---
Assessment and Plan Acute encephalopathy - could be due to dementia and underlying infection - will treat the underlying cause - Ct head was unremarkable - patient is now on restrain - haldol ordered for as needed agitation Dementia with behavioral disturbance - will continue his home medications - placed on aricept and exelon - as needed haldol for agitation - psych consult placed SIRS - pt had low grade temp, elevated white count and tachycardia on admission - source of infection unknown - CXR clear, UA unremarkable - placed on empiric iv abx but could not be given as he did not cooperate - blood and urine cx negative - will place him on oral augmentin for possible aspiration pneumonitis Abdominal pain - CT abdomen/pelvis pending Poor appetite - tolerating full liquid - will follow nutrition recommendation DVT/GI Px - heparin and PPI Subjective Date of service: 01/18/17 Interval history: Pt seen and examined he remained restrained was difficult to get iv line, iv abx was not given as pt was not cooperating, CT abdomen pelvis still pending pt tolerating diet and took oral meds Objective - Exam Narrative Exam: GENERAL: This is well-developed well-nourished AAM appears restrained. HEENT: Normocephalic. Atraumatic. Extraocular motions are intact. No conjunctival congestion or icterus. Patient has moist mucous membranes. External auditory canal and nares patent bilaterally. NECK: Supple. Trachea midline. No JVD, thyromagaly or lymphadenopathy. CHEST/LUNGS: Clear to auscultated bilaterally. There is no respiratory distress noted, breathing nonlabored. No wheezes crackles or rhonchi. HEART/CARDIOVASCULAR: Regular in rate and rhythm. PMI at the apex. There is no gallop rub or murmur. ABDOMEN: Abdomen is soft, nontender. Patient has normal bowel sounds. There is no abdominal distention. No organomagaly or rigidity. SKIN: There is no rash, no erythrema. There is no diaphoresis. Warm and dry. NEUROLOGY: The patient is awake, alert, and oriented to person only. does not appear to have any focal motor deficit. MUSCULOSKELETAL: No joint effusion or tenderness. Muscle strength equal bilaterally. No muscle wasting. EXTRIMITY: No edema, cyanosis or clubbing. PSYCH: confused. - Constitutional Vitals: Vital Signs - 12hr 01/18/17 09:29 Temperature 98.0 F Pulse Rate 102 H Respiratory 20 Rate Blood Pressure 110/67 O2 Sat by Pulse 95 Oximetry - Labs CBC & Chem 7: 01/18/17 09:48 01/18/17 09:48 Labs: Abnormal lab results 01/18/17 Range/Units 09:48 WBC 16.4 H (4.5-11.0) K/mm3 MCV 99 H (84-94) fl MCH 33 H (28-32) pg
[2017-01-18 13:01] LABS: Anion Gap 20 mmol/L; BUN/Creatinine Ratio 14.54; Blood Urea Nitrogen 16 mg/dL (9-20); Calcium 8.6 mg/dL (8.4-10.2); Carbon Dioxide 22 mmol/L (22-30); Chloride 100.1 mmol/L (98-107); Glucose 100 mg/dL (75-100); Potassium 3.8 mmol/L (3.6-5.0); Sodium 138 mmol/L (137-145)
[2017-01-18] MEDS: AUGMENTIN ORAL LIQD PO SCH ×2 (14:00→22:45)
--- NOTE | 2017-01-18 16:21 | Consultation ---
History of Present Illness - Reason for Consult Consult date: 01/18/17 Reason for consult: psychiatric evaluation - Chief Complaint Chief complaint: confused This is a 66-year-old AA male seen in the medical unit for psychiatric evaluation. He is in restraints and his speech is mostly incoherent. His nurse reports he has been confused, aggressive physically and was trying to take out his IV and hurt others. He presented the emergency department from home with complaint of a unresponsive episode in which the patient was awake with eyes open but was nonverbal and not following commands to his . The patient does have a history of dementia and a recent hospitalization at [facility] for behavioral disturbance. The record indicates the patient was recently here 2-3 days ago when the was having trouble getting him to eat enough food and therefore also take his medications. His is his support person. He states he is in [place] and is not . Per collateral reports he will need another placement. Medications and Allergies Allergies Allergy/AdvReac Type Severity Reaction Status Date / Time No Known Allergies Allergy Unverified 12/21/16 20:16 Home Medications Medication Instructions Recorded Confirmed Last Taken Type FLUoxetine HCL [FLUoxetine] 40 mg PO QAM 12/22/16 01/16/17 Unknown History Famotidine [Pepcid] 40 mg PO BID 12/22/16 01/16/17 Unknown History Quetiapine Fumarate [SEROquel] 50 mg PO QHS 12/22/16 01/16/17 Unknown History metFORMIN [Glucophage] 500 mg PO BID 12/22/16 01/16/17 Unknown History Aricept 5 mg PO HS 01/16/17 01/16/17 Unknown History Folic Acid 1 mg PO DAILY 01/16/17 01/16/17 Unknown History Haloperidol 0.25 mg PO HS 01/16/17 01/16/17 Unknown History LORazepam 0.5 mg PO BID 01/16/17 01/16/17 Unknown History Memantine HCl 10 mg PO BID 01/16/17 01/16/17 Unknown History amLODIPine 5 mg PO DAILY 01/16/17 01/16/17 Unknown History Active Meds: Active Medications Acetaminophen (Tylenol) 650 mg PO Q6H PRN PRN Reason: fever or mild pain Amoxicillin/Clavulanate Potassium (Augmentin Oral Liqd) 500 mg PO Q12HR [facility] Last Admin: 01/18/17 14:00 Dose: 500 mg Donepezil HCl (Aricept) 10 mg PO QHS [facility] Last Admin: 01/17/17 22:00 Dose: 10 mg Famotidine (Pepcid) 20 mg PO BID [facility] Last Admin: 01/18/17 11:24 Dose: 20 mg Haloperidol (Haldol) 0.25 mg PO QHS [facility] Last Admin: 01/17/17 22:00 Dose: 0.25 mg Haloperidol Lactate (Haldol) 2.5 mg IM Q6H PRN PRN Reason: Agitation Last Admin: 01/18/17 08:55 Dose: 2.5 mg Heparin Sodium (Porcine) (Heparin) 5,000 unit SUB-Q Q12HR [facility] Last Admin: 01/18/17 11:00 Dose: 5,000 unit Sodium Chloride (Nacl 0.9% 1000 Ml) 1,000 mls @ 75 mls/hr IV DIRECT [facility] Last Admin: 01/17/17 04:34 Dose: 75 mls/hr Lorazepam (Ativan) 0.5 mg PO BID [facility] Last Admin: 01/18/17 11:00 Dose: 0.5 mg Memantine (Namenda Xr) 14 mg PO DAILY [facility] Last Admin: 01/18/17 11:00 Dose: 14 mg Past psychiatric history - Past Medical History Past Medical History: other (CVA, dementia) Past Surgical History: hernia repair Mental Status Exam - Vital signs Last Vital Signs Temp 98.0 F 01/18/17 09:29 Pulse 102 H 01/18/17 10:00 Resp 20 01/18/17 10:00 BP 110/67 01/18/17 09:29 Pulse Ox 95 01/18/17 09:29 - Exam Orientation: person Mood: other (unable to obtain) Thought content: other (unable to obtain) Thought Process: Disoriented Perceptions: other (unable to obtain) Speech: incoherent Concentration: unable to pay attention Motor activity: restless Level of consciousness: confused Memory: Recent Impaired, Remote Impaired Appetite: decreased Interaction: other (no aggressive but in restraints. he responded to some questions) Results Result Diagrams: 01/18/17 09:48 01/18/17 09:48 Abnormal lab results 01/18/17 Range/Units 09:48 WBC 16.4 H (4.5-11.0) K/mm3 MCV 99 H (84-94) fl MCH 33 H (28-32) pg All other labs normal. Assessment and Plan Assessment and plan: Impression: possible delirium superimposed on dementia vs. dementia with behavioral disturbance dementia-unspecified type Recommendation: Avoid ativan and use haldol as currently ordered 2.5mg IV q 6 hours prn for agitation delirium precautions as follows: 1. Frequently reorient patient and involve him/her in their care (simple explanations of procedures, tests, medications). 2. Lights on and shades open during daytime hours. 3. Try to avoid unnecessary interruptions to sleep during nighttime hours. 4. Obtain glasses, hearing aids from home if patient uses these at baseline. 5. Avoid medications that may exacerbate delirium (especially narcotics, benzodiazepines, barbiturates, ambien, lunesta, and medications with excessive anticholinergic properties). Case management to look into alternative placements, such as SNF
[2017-01-18] MEDS: ARICEPT PO SCH (22:43)
[2017-01-18] MEDS: HALDOL PO SCH (22:43)
--- NOTE | 2017-01-19 02:06 | Admit Criteria Form ---
Admission Criteria Documentation: SYSTEMIC OR INFECTIOUS CONDITION Clinical Indications for Admission to Inpatient Care (Place 'X' for any and all applicable criteria): Hospital admission is needed for appropriate care of the patient because of ANY ONE of the following: [X]I. Hemodynamic instability indicated by ANY ONE of the following(1)(2)(3)( 4)(5): []a. Vital sign abnormality not readily corrected by appropriate treatment within 12 to 24 hours indicated by ANY ONE of the following: []i) Tachycardia that persists despite appropriate treatment []ii) Hypotension that persists despite appropriate treatment []iii) Orthostatic vital sign changes that persist despite appropriate treatment [X]b. Vital sign abnormality that is severe indicated by ANY ONE of the following: [X]i. Inadequate perfusion indicated by ANY ONE of the following : [X]1) Lactic acidosis (greater than 2 mmol/L) []2) New abnormal capillary refill (greater than 3 seconds) []3) Reduced urine output []4) New altered mental status []5) Myocardial Ischemia []ii. Mean arterial pressure [A] less than 60 mm Hg []iii. Mean arterial pressure[A] less than 70 mm Hg after 30 minutes of appropriate treatment (eg, fluid resuscitation) []iv. Sustained heart rate greater than 120 beats per minute in adult []v. IV inotropic or vasopressor medication required to maintain adequate blood pressure or perfusion []II. Systemic or infectious condition causing severe symptoms or findings not responsive to emergency or observation care treatment (as appropriate) indicated by ANY ONE of the following: []a. Cardiac arrhythmias of immediate concern(1)(2)(3) []b. Severe endocrine disorder (eg, thyrotoxicosis, adrenal insufficiency)(4)(5) []c. Seizures (eg, new or recurrent)(6) []d. New-onset end organ failure or dysfunction as indicated by ANY ONE of the following: []i. Acute unexplained hypoxemia (eg, not from lung infection or chronic disease)(7)(8)(9) []ii. Acute renal failure as indicated by new onset of ANY ONE of the following(10)(11)(12)(13)(14): []1) 3-fold rise in serum creatinine from baseline []2) Serum creatinine greater than 4 mg/dL (354 micromoles/L) with acute rise greater than 0.5 mg/dL (44.2 micromoles/L) []3) Reduction of more than 75% in estimated glomerular filtration rate from baseline. []4) Estimated glomerular filtration rate less than 35 mL/min/1.73m2 ( 0.59 mL/sec/1.73m2) in child younger than 18 years. []5) Cessation of urine output indicated by ALL of the following: []A. Adequate volume status []B. Inadequate urine output as indicated by ANY ONE of the following: []a. Urine output less than 0.3 mL/kg/hr for 24 hours []b. Anuria (urine output less than 0.1 mL/kg/hr) for 12 hours []iii. Acute mental status changes(15) []iv. Acute hepatic failure (eg, plasma bilirubin greater than 4 mg/ dL (68 micromoles/L), new INR greater than 2.0)(16)(17) []e. Unmanageable nausea and vomiting(18) []f. New-onset or uncontrolled central diabetes insipidus(19)(20) []g. Clinically significant dehydration(18)(21) []h. Hypoglycemia(22) []i. Acidosis (pH less than 7.35) or alkalosis (pH greater than 7.45)( 22)(23) []j. Toxic drug level that indicates need for specific monitoring or treatment(24)(25) []k. Severe electrolyte abnormalities indicated by ALL of the following( 1)(2)(3): []i. Electrolytes and associated findings are not as expected for patient baseline or acceptable treatment effects. []ii. Severe abnormalities indicated by ANY ONE of the following: []1) Sodium less than 130 mEq/L (mmol/L) (new) []2) Sodium less than 135 mEq/L (mmol/L) with ANY ONE of the following: []A. Uncorrectable (to near normal or chronic baseline) after trial of outpatient and emergency treatment []B. Altered mental status []C. Seizures []D. Severe medical etiology requiring inpatient management (eg , heart failure, hypovolemia) []3) Sodium greater than 155 mEq/L (mmol/L) []4) Sodium greater than 150 mEq/L (mmol/L) with ANY ONE of the following: []A. Uncorrectable (to near normal or chronic baseline) with outpatient and emergency treatment []B. Altered mental status []C. Seizures []D. Severe medical etiology (eg, hypovolemia, diabetes insipidus) []5) Potassium less than 2.5 mEq/L (mmol/L) despite outpatient and emergency treatment []6) Potassium less than 3 mEq/L (mmol/L) with ANY ONE of the following : []A. Weakness []B. Cardiac abnormality (eg, arrhythmia, conduction disturbance ) []C. Cardiac ischemia []D. Ileus []E. Ongoing medical cause requiring inpatient management (eg, acute renal wasting or SIADH) []F. Other severe symptoms []7) Potassium greater than 6.5 mEq/L (mmol/L) []8) Potassium greater than 5 mEq/L (mmol/L) with ANY ONE of the following: []A. Uncorrectable (to near normal or chronic baseline) with outpatient and emergency treatment []B. Severe ECG findings[A] []C. Acute worsening of renal failure (creatinine greater than 2.5 mg/dL (221 micromoles/L) or significant elevation for age and size) []D. Severe weakness []E. Severe medical etiology (eg, hemolysis, infection, drug overdose) []9) Calcium less than 7 mg/dL (1.75 mmol/L) despite outpatient and emergency treatment(5) []10) Calcium less than 8 mg/dL (2 mmol/L) with significant symptoms or findings (eg, altered mental status, muscle spasms, seizures, breathing difficulty, cardiac abnormality (eg, arrhythmia or conduction disturbance))(5) []11) Calcium greater than 14 mg/dL (3.5 mmol/L)(5) []12) Calcium greater than 12 mg/dL (3 mmol/L) with ANY ONE of the following(5): []A. Uncorrectable (to near normal or chronic baseline) with outpatient and emergency treatment []B. Significant dehydration or hypovolemia as indicated by ALL of the following(3)(6)(7): []a. Not resolved with initial treatments []b. Clinically significant dehydration as indicated by ANY ONE of the following: [](1) Vomiting refractory to outpatient treatment (ie, precluding oral rehydration) [](2) Inability to drink [](3) Hypernatremia or other electrolyte abnormality unable to be corrected with outpatient and emergency treatment [](4) Failure to remain hydrated with outpatient therapy [](5) Reduced urine output [](6) Hypotension [](7) Serious cause for dehydration requiring acute hospitalization ( eg, bowel obstruction, increased intracranial pressure, infectious cause) [](8) Child with ANY ONE of the following(8): [](i) Severe abdominal tenderness [](ii) Adequate care not available at home [](iii) Severe dehydration (greater than 9% loss of body weight) []C. Significant symptoms or findings (eg, altered mental status , cardiac abnormality (eg, arrhythmia, conduction disturbance), malignant etiology requiring inpatient treatment) []13) Phosphorus less than 1 mg/dL (0.32 mmol/L) []14) Phosphorus less than 1.5 mg/dL (0.48 mmol/L) with ANY ONE of the following: []A. Patient unresponsive to outpatient and emergency treatment []B. Significant symptoms or findings (eg, weakness, altered mental status, breathing difficulty, seizures, rhabdomyolysis) []15) Phosphorus greater than 10 mg/dL (3.2 mmol/L) []16) Phosphorus greater than 4.5 mg/dL (1.45 mmol/L) (new) with ANY ONE of the following: []A. Severe medical etiology (eg, crush injury, acute renal failure) []B. Associated hypocalcemia with significant findings (eg, neurologic symptoms, altered mental status, muscle spasms, seizures, breathing difficulty, cardiac abnormality (eg, arrhythmia, conduction disturbance)) []16) Magnesium less than 1 mg/dL (0.41 mmol/L) []17) Magnesium less than 1.5 mg/dL (0.62 mmol/L) with ANY ONE of the following: []A. Patient unresponsive to outpatient and emergency treatment []B. Associated hypocalcemia with significant findings (eg, altered mental status, muscle spasms, seizures, breathing difficulty, cardiac abnormality (eg, arrhythmia, conduction disturbance)) []C. Associated hypokalemia (potassium less than 3 mEq/L (mmol/L )) with risk of arrhythmia []18) Magnesium greater than 4 mEq/L (2 mmol/L) []19) Magnesium greater than 2.5 mEq/L (1.25 mmol/L) with significant symptoms or findings (eg, weakness, altered mental status, cardiac abnormality (eg, arrhythmia, conduction disturbance), breathing difficulty, severe medical etiology (eg, renal failure, hypovolemia)) []20) Uric acid greater than 20 mg/dL (1190 micromoles/L)(9) []21) Uric acid greater than 8 mg/dL (476 micromoles/L) with significant symptoms or findings of tumor lysis syndrome (eg, creatinine greater than 1.5 times upper limit of normal, cardiac abnormality (eg , arrhythmia, conduction disturbance), seizure)(9) []III. High fever or other high-risk infection situation as indicated by ANY ONE of the following(26)(27)(28): []a. Outpatient and observation care antimicrobial treatment unavailable, not effective, or not appropriate []b. Documented bacteremia []c. Temperature greater than 104.9 degrees F (40.5 degrees C) (oral) []d. Temperature greater than 103.1 degrees F (39.5 degrees C) (oral) or less than 96.8 degrees F (36 degrees C) (rectal) that does not respond to emergency treatment and observation care []IV. High-risk febrile neutropenia[A] as indicated by ANY ONE of the following(29)(30)(31)(32): []a. Profound neutropenia[B] anticipated to extend for more than 7 days []b. Hemodynamic instability []c. Hypoxemia []d. Tachypnea []e. Altered mental status []f. New-onset abdominal pain []g. New-onset vomiting or diarrhea []h. Oral or gastrointestinal mucositis that interferes with swallowing or causes severe diarrhea []i. Focal infection (eg, cellulitis, pneumonia, central line or catheter infection, perirectal abscess) []j. Renal insufficiency (eg, GFR of less than 30 mL/min/1.73m2 (0.5 mL/sec /1.73m2)). []k. Severe liver dysfunction (transaminase levels greater than 5 times normal) []l. Platelet count less than 50,000/mm3 (50 x109/L)(33) []m. Leukemia or lymphoma induction therapy []n. Leukemia not in complete remission or with evidence of disease progression []o. Bone marrow transplant patient []p. Alemtuzumab being used for therapy []q. [employer] Supportive Care in Cancer (MASCC) Risk Index score of less than 21[C](33)(35). []V. Isolation required (eg, tuberculosis that requires isolation, Ebola infection)[D](36)(37)(38)(39)(40) []. Gangrene that requires treatment beyond emergency or observation level care(41)(42) []VII. Antitoxin administration and ongoing observation required (eg, tetanus, botulism)(43)(44) []. Suspected infection with rapid progression or severe symptoms as indicated by ANY ONE of the following(45): []a. Streptococcal or staphylococcal toxic shock(46) []b. Diphtheria(47) []c. Hantavirus(48) []d. Severe acute respiratory syndrome(8)(49) []e. Anthrax(50) []f. Ebola[D](36)(37)(38) []g. Necrotizing soft tissue infection(41)(42) []h. Plague(50) []i. Other suspected infection that requires care beyond emergency or observation level care []VII. Severe adverse drug or systemic toxin reaction as indicated by ANY ONE of the following(24): []a. Serotonin syndrome(51)(52) []b. Neuroleptic malignant syndrome(51)(52) []c. Cholinergic syndrome with severe symptoms (eg, bronchorrhea, weakness , mental status changes, seizures)(53) []d. Anticholinergic syndrome []e. Sympathetic syndrome with severe symptoms (eg, seizures, mental status changes, cardiac dysrhythmias) []f. Other severe adverse drug or systemic toxin reaction that remains after emergency or observation level care (as appropriate) []VIII. Allergic reaction with severe symptoms (not responsive to emergency or observation care treatment as appropriate), including ANY ONE of the following(54): []a. Airway edema (pharyngeal, epiglottic, or laryngeal edema) []b. Stridor []c. Respiratory failure []d. Bronchospasm []e. Hypotension []IX. Environmental emergency (not responsive to emergency or observation care treatment as appropriate) as indicated by ANY ONE of the following(55)(56): []a. Hyperthermia []b. Heat stroke []c. Heat exhaustion []d. Hypothermia (temperature less than 95 degrees F (35 degrees C) rectal) (57) []e. Electrocution(58) []X. Complications of transplanted organ (ie, not covered elsewhere)[E] indicated by ANY ONE of the following(59): []a. Acute graft rejection (or graft vs. host disease)[F] requiring inpatient management (eg, intravenous immunosuppression)(60)(61)(62)( 63) []b. Acute failure of transplanted organ necessitating inpatient care (eg, cannot be managed in other setting) []c. Infection requiring inpatient management (eg, Hemodynamic instability, need for intravenous antimicrobial treatment)(64)(65) []d. Other complication of transplanted organ requiring inpatient management []XI. Systemic or Infectious Condition condition, symptom, or finding for which emergency and observation care have failed or are not considered appropriate. See General Criteria: Observation Care, General Admission Criteria or Pediatric General Admission Criteria guideline as appropriate. The [facility] content created by [facility] has been revised. The portions of the content which have been revised are identified through the use of italic text or in bold and [facility] has neither reviewed nor approved the modified material. All other unmodified content is copyright [facility]. Please see references footnoted in the original [facility] edition 2016 Admission Criteria Met: Yes
[2017-01-19] MEDS: PEPCID PO SCH ×2 (09:21→23:27)
[2017-01-19] MEDS: ATIVAN PO SCH (09:21)
[2017-01-19] MEDS: NAMENDA XR PO SCH (09:21)
[2017-01-19] MEDS: AUGMENTIN ORAL LIQD PO SCH ×2 (09:21→23:27)
[2017-01-19] MEDS: HEPARIN SUB-Q SCH ×2 (09:21→23:27)
--- NOTE | 2017-01-19 11:01 | Progress Note ---
Subjective - Reason for Consult Consult date: 01/19/17 Reason for consult: Psychiatry Follow-up - Chief Complaint Chief complaint: "Confused" This is a 66-year-old AA male seen in the medical unit for psychiatric evaluation. Today patient is calm during the assessment. When I asked the patient a question, he would answer, "I want to return to [place]." When he was redirected, again patient stated that he wanted to return to [place]. Per his assigned RN, no behavior disturbances on this shift. She stated that the patient can get agitated easily based on prior interaction with him. The patient does have a history of dementia and with a recent hospitalization at [facility] for behavioral disturbance. Per information from his , patient experiencing poor oral intake other than fluids. No gestures of SI/HI's and AVH' s. Mental Status Exam - Vital signs Last Vital Signs Temp 99.4 F 01/19/17 10:01 Pulse 65 01/19/17 10:01 Resp 20 01/19/17 10:01 BP 100/59 01/19/17 10:01 Pulse Ox 95 01/18/17 22:00 - Exam Narrative exam: MSE: Appearance: calm Behavior: regular eye contact Speech: regular rate and tone Mood: unable to assess Affect: labile Thought Process: unable to assess Thought Content: no gestures of SI/HI's and AVH's, disorganized Motor Activity: lying in bed Cognition: A/Ox 1 Insight: impaired Judgment: impaired Assessment and Plan Impression: Possible delirium superimposed by dementia vs. Dementia with behavioral disturbance, Dementia-unspecified type. Today patient is calm during the assessment. Patient not in restraints. Recommendation: Taper the Ativan to 0.5 mg PO daily x 2 days than D/C. Modify Haldol to 5 mg IM Q6hrs PRN for agitation. Continue Haldol 2.5 mg PO BID and start Remeron 7.5 mg PO HS for sleep/stimulate appetite. Delirium precautions as follows: 1. Frequently reorient patient and involve him/her in their care (simple explanations of procedures, tests, medications). 2. Lights on and shades open during daytime hours. 3. Try to avoid unnecessary interruptions to sleep during nighttime hours. 4. Obtain glasses, hearing aids from home if patient uses these at baseline. 5. Avoid medications that may exacerbate delirium (especially narcotics, benzodiazepines, barbiturates, ambien, lunesta, and medications with excessive anticholinergic properties). Case management to look into alternative placements, such as SNF
[2017-01-19 11:50] LABS: Hematocrit 40.5 % (35.5-45.6); Hemoglobin 13.6 gm/dl (11.8-15.2); Mean Corpuscular HGB Conc 34 % (32-34); Mean Corpuscular Hemoglobin 33 pg (28-32); Mean Corpuscular Volume 98 fl (84-94); Platelet Count 167 K/mm3 (140-440); Red Blood Count 4.13 M/mm3 (3.65-5.03); Red Cell Distribution Width 13.8 % (13.2-15.2); White Blood Count 10.4 K/mm3 (4.5-11.0)
[2017-01-19 12:09] LABS: Anion Gap 20 mmol/L; BUN/Creatinine Ratio 11.11; Blood Urea Nitrogen 10 mg/dL (9-20); Calcium 9.1 mg/dL (8.4-10.2); Carbon Dioxide 22 mmol/L (22-30); Chloride 102.6 mmol/L (98-107); Glucose 128 mg/dL (75-100); Potassium 4.3 mmol/L (3.6-5.0); Sodium 140 mmol/L (137-145)
--- NOTE | 2017-01-19 18:18 | Progress Note ---
Assessment and Plan This is a 66-year-old Afro-[place] male presents the emergency department from home with complaint of a unresponsive episode in which the patient was awake with eyes open but was nonverbal and not following commands to his . Acute encephalopathy - could be due to dementia and underlying infection - will treat the underlying cause - Ct head was unremarkable - patient is now on restrain - haldol ordered for as needed agitation Dementia with behavioral disturbance - will continue his home medications - placed on aricept and exelon - as needed haldol for agitation - psych consult placed and recommended following: Taper the Ativan to 0.5 mg PO daily x 2 days than D/C. Modify Haldol to 5 mg IM Q6hrs PRN for agitation. Continue Haldol 2.5 mg PO BID and start Remeron 7.5 mg PO HS for sleep/stimulate appetite SIRS - pt had low grade temp, elevated white count and tachycardia on admission - source of infection unknown - CXR clear, UA unremarkable - placed on empiric iv abx but could not be given as he did not cooperate - blood and urine cx negative - will cont him on oral augmentin for possible aspiration pneumonitis Abdominal pain - CT abdomen/pelvis pending, will do w/o contrast as he took off his iv line Poor appetite - tolerating full liquid - will follow nutrition recommendation - added remeron DVT/GI Px - heparin and PPI disposition: may need SNF Subjective Date of service: 01/19/17 Principal diagnosis: AMS Interval history: Pt seen and examined he remained restrained CT abdomen pelvis still pending, he took off his iv line pt tolerating diet and took oral meds Objective - Exam Narrative Exam: GENERAL: This is well-developed well-nourished AAM appears restrained. HEENT: Normocephalic. Atraumatic. Extraocular motions are intact. No conjunctival congestion or icterus. Patient has moist mucous membranes. External auditory canal and nares patent bilaterally. NECK: Supple. Trachea midline. No JVD, thyromagaly or lymphadenopathy. CHEST/LUNGS: Clear to auscultated bilaterally. There is no respiratory distress noted, breathing nonlabored. No wheezes crackles or rhonchi. HEART/CARDIOVASCULAR: Regular in rate and rhythm. PMI at the apex. There is no gallop rub or murmur. ABDOMEN: Abdomen is soft, nontender. Patient has normal bowel sounds. There is no abdominal distention. No organomagaly or rigidity. SKIN: There is no rash, no erythrema. There is no diaphoresis. Warm and dry. NEUROLOGY: The patient is awake, alert, and oriented to person only. does not appear to have any focal motor deficit. MUSCULOSKELETAL: No joint effusion or tenderness. Muscle strength equal bilaterally. No muscle wasting. EXTRIMITY: No edema, cyanosis or clubbing. PSYCH: confused. - Constitutional Vitals: Vital Signs - 12hr 01/19/17 01/19/17 10:00 10:01 Temperature 99.4 F Pulse Rate 65 Pulse Rate [ 65 From Monitor] Respiratory 20 20 Rate Blood Pressure 100/59 - Labs CBC & Chem 7: 01/19/17 11:20 01/19/17 11:20 Labs: Abnormal lab results 01/19/17 01/19/17 Range/Units 11:20 11:20 MCV 98 H (84-94) fl MCH 33 H (28-32) pg Glucose 128 H (75-100) mg/dL
[2017-01-19] MEDS: HALDOL IM PRN (18:22)
[2017-01-19] MEDS: REMERON PO SCH (23:25)
[2017-01-19] MEDS: HALDOL PO SCH (23:26)
[2017-01-19] MEDS: ARICEPT PO SCH (23:26)
[2017-01-20] MEDS: NAMENDA XR PO SCH (11:00)
--- NOTE | 2017-01-20 12:10 | Progress Note ---
Subjective - Reason for Consult Consult date: 01/20/17 Reason for consult: Psychiatry Follow-up - Chief Complaint Chief complaint: "Confused" This is a 66-year-old AA male seen in the medical unit for psychiatric evaluation. Today patient is calm, but confused during the assessment. Patient is adamant about going to "[place]." He continued to say "[place]" when he was asked a question. Per his assigned RN, patient had to be put back in restraints this morning. Also, his assigned RN stated that patient eat his meals depending on the texture of the food based her assessment. No gestures of SI/HI's and AVH's. Mental Status Exam - Vital signs Last Vital Signs Temp 98.4 F 01/20/17 09:53 Pulse 97 H 01/20/17 09:53 Resp 20 01/20/17 09:53 BP 117/79 01/20/17 09:53 Pulse Ox 97 01/20/17 01:00 - Exam Narrative exam: MSE: Appearance: calm Behavior: regular eye contact Speech: regular rate and tone Mood: unable to assess Affect: labile Thought Process: unable to assess Thought Content: no gestures of SI/HI's and AVH's, disorganized Motor Activity: lying in bed Cognition: A/Ox 1 Insight: impaired Judgment: impaired Assessment and Plan Impression: Possible delirium superimposed by dementia vs. Dementia with behavioral disturbance, Dementia-unspecified type. Today patient is calm, but confused during the assessment. Patient in restraints. Recommendation: Continue Ativan 0.5 mg PO daily. Last dose tomorrow (Ativan Taper). Continue Haldol 5 mg IM Q6hrs PRN for agitation. Continue Haldol 2.5 mg PO BID and Remeron 7.5 mg PO HS for sleep/stimulate appetite. Delirium precautions as follows: 1. Frequently reorient patient and involve him/her in their care (simple explanations of procedures, tests, medications). 2. Lights on and shades open during daytime hours. 3. Try to avoid unnecessary interruptions to sleep during nighttime hours. 4. Obtain glasses, hearing aids from home if patient uses these at baseline. 5. Avoid medications that may exacerbate delirium (especially narcotics, benzodiazepines, barbiturates, ambien, lunesta, and medications with excessive anticholinergic properties). Recommend that Case Management place patient in a SNF for dementia patients.
[2017-01-20] MEDS: AUGMENTIN ORAL LIQD PO SCH ×2 (12:18→23:50)
[2017-01-20] MEDS: ATIVAN PO SCH (12:20)
[2017-01-20] MEDS: HEPARIN SUB-Q SCH ×2 (12:20→23:56)
[2017-01-20] MEDS: PEPCID PO SCH ×2 (12:20→23:56)
--- NOTE | 2017-01-20 18:33 | Progress Note ---
Assessment and Plan Assessment and plan: This is a 66-year-old Afro-Kos[place] male presents the emergency department from home with complaint of a unresponsive episode in which the patient was awake with eyes open but was nonverbal and not following commands to his . Acute encephalopathy - could be due to dementia and underlying infection - will treat the underlying cause - Ct head was unremarkable - patient is now on restrain - haldol ordered for as needed agitation Dementia with behavioral disturbance - will continue his home medications - placed on aricept and exelon - as needed haldol for agitation - psych consult placed and recommended following: - Taper the Ativan to 0.5 mg PO daily x 2 days than D/C. Haldol to 5 mg IM Q6hrs PRN for agitation. Continue Haldol 2.5 mg PO BID, Remeron 7.5 mg PO HS for sleep/stimulate appetite SIRS - pt had low grade temp, elevated white count and tachycardia on admission - source of infection unknown - CXR clear, UA unremarkable - On emperic antibiotic - blood and urine cx negative - will cont him on oral augmentin for possible aspiration pneumonitis Abdominal pain - Patient denied and I cancelled the CT scan Poor appetite - tolerating full liquid - will follow nutrition recommendation - added remeron DVT/GI Px - heparin and PPI disposition:Will D/C to SNF once he off restrains. History Interval history: Patient was seen and evaluated this morning, patient was confused, he was asking to go to [place]. Hospitalist Physical - Physical exam Narrative exam: Not in cardiopulmonary distress. The patient appeared well nourished and normally developed. Vital signs as documented. Head exam is unremarkable. No scleral icterus . Neck is without jugular venous distension, thyromegaly, or carotid bruits. Lungs are clear to auscultation. Cardiac exam reveals regular rate and Rhythm. First and second heart sounds normal. No murmurs, rubs or gallops. Abdominal exam reveals normal bowel sounds, no masses, no organomegaly and no aortic enlargement. Extremities are nonedematous and both femoral and pedal pulses are normal. PRODUCT SAFETY LEAD:alert and oriented only to self. - Constitutional Vitals: Temp Pulse Resp BP Pulse Ox 98.4 F 97 H 20 117/79 97 01/20/17 09:53 01/20/17 09:53 01/20/17 09:53 01/20/17 09:53 01/20/17 01:00 Results - Labs CBC & Chem 7: 01/19/17 11:20 01/19/17 11:20 Labs: Laboratory Last Values WBC 10.4 K/mm3 (4.5-11.0) 01/19/17 11:20 RBC 4.13 M/mm3 (3.65-5.03) 01/19/17 11:20 Hgb 13.6 gm/dl (11.8-15.2) 01/19/17 11:20 Hct 40.5 % (35.5-45.6) 01/19/17 11:20 MCV 98 fl (84-94) H 01/19/17 11:20 MCH 33 pg (28-32) H 01/19/17 11:20 MCHC 34 % (32-34) 01/19/17 11:20 RDW 13.8 % (13.2-15.2) 01/19/17 11:20 Plt Count 167 K/mm3 (140-440) 01/19/17 11:20 Add Manual Diff Complete 01/17/17 00:16 Total Counted 100 01/17/17 00:16 Seg Neutrophils % Assisted Living Director 01/17/17 00:16 Seg Neuts % (Manual) 77.0 % (40.0-70.0) H 01/17/17 00:16 Band Neutrophils % 9.0 % 01/17/17 00:16 Lymphocytes % (Manual) 5.0 % (13.4-35.0) L 01/17/17 00:16 Reactive Lymphs % (Man) 0 % 01/17/17 00:16 Monocytes % (Manual) 9.0 % (0.0-7.3) H 01/17/17 00:16 Eosinophils % (Manual) 0 % (0.0-4.3) 01/17/17 00:16 Basophils % (Manual) 0 % (0.0-1.8) 01/17/17 00:16 Metamyelocytes % 0 % 01/17/17 00:16 Myelocytes % 0 % 01/17/17 00:16 Promyelocytes % 0 % 01/17/17 00:16 Blast Cells % 0 % 01/17/17 00:16 Nucleated RBC % Not Reportable 01/17/17 00:16 Seg Neutrophils # Man 13.9 K/mm3 (1.8-7.7) H 01/17/17 00:16 Band Neutrophils # 1.6 K/mm3 01/17/17 00:16 Lymphocytes # (Manual) 0.9 K/mm3 (1.2-5.4) L 01/17/17 00:16 Abs React Lymphs (Man) 0.0 K/mm3 01/17/17 00:16 Monocytes # (Manual) 1.6 K/mm3 (0.0-0.8) H 01/17/17 00:16 Eosinophils # (Manual) 0.0 K/mm3 (0.0-0.4) 01/17/17 00:16 Basophils # (Manual) 0.0 K/mm3 (0.0-0.1) 01/17/17 00:16 Metamyelocytes # 0.0 K/mm3 01/17/17 00:16 Myelocytes # 0.0 K/mm3 01/17/17 00:16 Promyelocytes # 0.0 K/mm3 01/17/17 00:16 Blast Cells # 0.0 K/mm3 01/17/17 00:16 WBC Morphology Not Reportable 01/17/17 00:16 Hypersegmented Neuts Not Reportable 01/17/17 00:16 Hyposegmented Neuts Not Reportable 01/17/17 00:16 Hypogranular Neuts Not Reportable 01/17/17 00:16 Smudge Cells Not Reportable 01/17/17 00:16 Toxic Granulation Few 01/17/17 00:16 Toxic Vacuolation Not Reportable 01/17/17 00:16 Dohle Bodies Not Reportable 01/17/17 00:16 Pelger-Huet Anomaly Not Reportable 01/17/17 00:16 Jeyson Rods Not Reportable 01/17/17 00:16 Platelet Estimate Appears normal 01/17/17 00:16 Clumped Platelets Not Reportable 01/17/17 00:16 Plt Clumps, EDTA Not Reportable 01/17/17 00:16 Large Platelets Not Reportable 01/17/17 00:16 Giant Platelets Not Reportable 01/17/17 00:16 Platelet Satelliting Not Reportable 01/17/17 00:16 Plt Morphology Comment Not Reportable 01/17/17 00:16 RBC Morphology Not Reportable 01/17/17 00:16 Dimorphic RBCs Not Reportable 01/17/17 00:16 Polychromasia Not Reportable 01/17/17 00:16 Hypochromasia Few 01/17/17 00:16 Poikilocytosis Not Reportable 01/17/17 00:16 Anisocytosis 1+ 01/17/17 00:16 Microcytosis Not Reportable 01/17/17 00:16 Macrocytosis Not Reportable 01/17/17 00:16 Spherocytes Not Reportable 01/17/17 00:16 Pappenheimer Bodies Not Reportable 01/17/17 00:16 Sickle Cells Not Reportable 01/17/17 00:16 Target Cells Not Reportable 01/17/17 00:16 Tear Drop Cells Not Reportable 01/17/17 00:16 Ovalocytes Not Reportable 01/17/17 00:16 Helmet Cells Not Reportable 01/17/17 00:16 [place] Bodies Not Reportable 01/17/17 00:16 [place] Rings Not Reportable 01/17/17 00:16 [place] Cells Not Reportable 01/17/17 00:16 Bite Cells Not Reportable 01/17/17 00:16 Crenated Cell Not Reportable 01/17/17 00:16 Elliptocytes Not Reportable 01/17/17 00:16 Acanthocytes (Spur) Not Reportable 01/17/17 00:16 Rouleaux Not Reportable 01/17/17 00:16 Hemoglobin C Crystals Not Reportable 01/17/17 00:16 Schistocytes Not Reportable 01/17/17 00:16 Malaria parasites Not Reportable 01/17/17 00:16 Albin Bodies Not Reportable 01/17/17 00:16 Hem Pathologist Commnt No 01/17/17 00:16 Sodium 140 mmol/L (137-145) 01/19/17 11:20 Potassium 4.3 mmol/L (3.6-5.0) 01/19/17 11:20 Chloride 102.6 mmol/L (98-107) 01/19/17 11:20 Carbon Dioxide 22 mmol/L (22-30) 01/19/17 11:20 Anion Gap 20 mmol/L 01/19/17 11:20 BUN 10 mg/dL (9-20) 01/19/17 11:20 Creatinine 0.9 mg/dL (0.8-1.5) 01/19/17 11:20 Estimated GFR > 60 ml/min 01/19/17 11:20 BUN/Creatinine Ratio 11.11 % 01/19/17 11:20 Glucose 128 mg/dL (75-100) H 01/19/17 11:20 POC Glucose 147 (70-105) H 01/17/17 00:37 Lactic Acid 1.90 mmol/L (0.7-2.0) 01/17/17 17:48 Calcium 9.1 mg/dL (8.4-10.2) 01/19/17 11:20 Magnesium 1.70 mg/dL (1.7-2.3) 01/17/17 00:16 Total Bilirubin 0.60 mg/dL (0.1-1.2) 01/17/17 00:16 AST 16 units/L (5-40) 01/17/17 00:16 ALT 11 units/L (7-56) 01/17/17 00:16 Alkaline Phosphatase 49 units/L (35-129) 01/17/17 00:16 Total Protein 6.3 g/dL (6.3-8.2) D 01/17/17 00:16 Albumin 3.5 g/dL (3.9-5) L 01/17/17 00:16 Albumin/Globulin Ratio 1.3 % 01/17/17 00:16 TSH 0.539 mlU/mL (0.270-4.200) 01/17/17 00:16 Urine Color Yellow (Yellow) 01/17/17 00:35 Urine Turbidity Clear (Clear) 01/17/17 00:35 Urine pH 5.0 (5.0-7.0) 01/17/17 00:35 Ur Specific [place] 1.027 (1.003-1.030) 01/17/17 00:35 Urine Protein <15 mg/dl mg/dL (Negative) 01/17/17 00:35 Urine Glucose (UA) Neg mg/dL (Negative) 01/17/17 00:35 Urine Ketones Tr mg/dL (Negative) 01/17/17 00:35 Urine Blood Neg (Negative) 01/17/17 00:35 Urine Nitrite Neg (Negative) 01/17/17 00:35 Urine Bilirubin Neg (Negative) 01/17/17 00:35 Urine Urobilinogen 4.0 mg/dL (<2.0) 01/17/17 00:35 Ur Leukocyte Esterase Neg (Negative) 01/17/17 00:35 Urine WBC (Auto) < 1.0 /HPF (0.0-6.0) 01/17/17 00:35 Urine RBC (Auto) < 1.0 /HPF (0.0-6.0) 01/17/17 00:35 U Epithel Cells (Auto) < 1.0 /HPF (0-13.0) 01/17/17 00:35 Urine Mucus 3+ /HPF 01/17/17 00:35 Salicylates < 0.3 mg/dL (2.8-20.0) L 01/17/17 00:16 Urine Opiates Screen Presumptive negative 01/17/17 00:35 Urine Methadone Screen Presumptive negative 01/17/17 00:35 Acetaminophen < 15.0 ug/mL (10.0-30.0) 01/17/17 00:16 Ur Barbiturates Screen Presumptive negative 01/17/17 00:35 Ur Phencyclidine Scrn Presumptive negative 01/17/17 00:35 Ur Amphetamines Screen Presumptive negative 01/17/17 00:35 U Benzodiazepines Scrn Presumptive negative 01/17/17 00:35 Urine Cocaine Screen Presumptive negative 01/17/17 00:35 U Marijuana (THC) Screen Presumptive negative 01/17/17 00:35 Drugs of Abuse Note Disclamer 01/17/17 00:35 Plasma/Serum Alcohol < 0.01 gm% (0-0.07) 01/17/17 00:16
[2017-01-20] MEDS: HALDOL IM PRN (23:40)
[2017-01-20] MEDS: ARICEPT PO SCH (23:56)
[2017-01-20] MEDS: HALDOL PO SCH (23:56)
[2017-01-20] MEDS: REMERON PO SCH (23:56)
[2017-01-21] MEDS: NAMENDA XR PO SCH (11:03)
[2017-01-21] MEDS: ATIVAN PO SCH (11:08)
[2017-01-21] MEDS: HEPARIN SUB-Q SCH ×2 (11:08→22:47)
[2017-01-21] MEDS: HALDOL IM PRN ×2 (11:08→23:05)
[2017-01-21] MEDS: PEPCID PO SCH (11:08)
[2017-01-21] MEDS: AUGMENTIN ORAL LIQD PO SCH (11:09)
--- NOTE | 2017-01-21 18:47 | Progress Note ---
Assessment and Plan Assessment and plan: This is a 66-year-old Afro-[place] male presents the emergency department from home with complaint of a unresponsive episode in which the patient was awake with eyes open but was nonverbal and not following commands to his . Acute encephalopathy - could be due to dementia and underlying infection - will treat the underlying cause - Ct head was unremarkable - patient is now on restrain - haldol ordered for as needed agitation Dementia with behavioral disturbance - will continue his home medications - placed on aricept and exelon - as needed haldol for agitation - psych consult placed and recommended following: - Taper the Ativan to 0.5 mg PO daily x 2 days than D/C. Haldol to 5 mg IM Q6hrs PRN for agitation. Continue Haldol 2.5 mg PO BID, Remeron 7.5 mg PO HS for sleep/stimulate appetite SIRS - pt had low grade temp, elevated white count and tachycardia on admission - source of infection unknown - CXR clear, UA unremarkable - On emperic antibiotic - blood and urine cx negative - will cont him on oral augmentin for possible aspiration pneumonitis Abdominal pain - Patient denied and I cancelled the CT scan Poor appetite - tolerating full liquid - will follow nutrition recommendation - added remeron DVT/GI Px - heparin and PPI disposition:Will D/C to SNF once he off restrains. History Interval history: Patient was seen and evaluated this morning, patient was confused, patient is on restraints. Hospitalist Physical - Physical exam Narrative exam: Not in cardiopulmonary distress. The patient appeared well nourished and normally developed. Vital signs as documented. Head exam is unremarkable. No scleral icterus . Neck is without jugular venous distension, thyromegaly, or carotid bruits. Lungs are clear to auscultation. Cardiac exam reveals regular rate and Rhythm. First and second heart sounds normal. No murmurs, rubs or gallops. Abdominal exam reveals normal bowel sounds, no masses, no organomegaly and no aortic enlargement. Extremities are nonedematous and both femoral and pedal pulses are normal. 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 - Constitutional Vitals: Temp Pulse Resp BP Pulse Ox 98.3 F 98 H 18 113/73 97 01/21/17 10:01/21/17 10:01/21/17 10:01/21/17 10:01/21/17 10:00 Results - Labs CBC & Chem 7: 01/19/17 11:20 01/19/17 11:20 Labs: Laboratory Last Values WBC 10.4 K/mm3 (4.5-11.0) 01/19/17 11:20 RBC 4.13 M/mm3 (3.65-5.03) 01/19/17 11:20 Hgb 13.6 gm/dl (11.8-15.2) 01/19/17 11:20 Hct 40.5 % (35.5-45.6) 01/19/17 11:20 MCV 98 fl (84-94) H 01/19/17 11:20 MCH 33 pg (28-32) H 01/19/17 11:20 MCHC 34 % (32-34) 01/19/17 11:20 RDW 13.8 % (13.2-15.2) 01/19/17 11:20 Plt Count 167 K/mm3 (140-440) 01/19/17 11:20 Add Manual Diff Complete 01/17/17 00:16 Total Counted 100 01/17/17 00:16 Seg Neutrophils % Lead Enterprise Architect 01/17/17 00:16 Seg Neuts % (Manual) 77.0 % (40.0-70.0) H 01/17/17 00:16 Band Neutrophils % 9.0 % 01/17/17 00:16 Lymphocytes % (Manual) 5.0 % (13.4-35.0) L 01/17/17 00:16 Reactive Lymphs % (Man) 0 % 01/17/17 00:16 Monocytes % (Manual) 9.0 % (0.0-7.3) H 01/17/17 00:16 Eosinophils % (Manual) 0 % (0.0-4.3) 01/17/17 00:16 Basophils % (Manual) 0 % (0.0-1.8) 01/17/17 00:16 Metamyelocytes % 0 % 01/17/17 00:16 Myelocytes % 0 % 01/17/17 00:16 Promyelocytes % 0 % 01/17/17 00:16 Blast Cells % 0 % 01/17/17 00:16 Nucleated RBC % Not Reportable 01/17/17 00:16 Seg Neutrophils # Man 13.9 K/mm3 (1.8-7.7) H 01/17/17 00:16 Band Neutrophils # 1.6 K/mm3 01/17/17 00:16 Lymphocytes # (Manual) 0.9 K/mm3 (1.2-5.4) L 01/17/17 00:16 Abs React Lymphs (Man) 0.0 K/mm3 01/17/17 00:16 Monocytes # (Manual) 1.6 K/mm3 (0.0-0.8) H 01/17/17 00:16 Eosinophils # (Manual) 0.0 K/mm3 (0.0-0.4) 01/17/17 00:16 Basophils # (Manual) 0.0 K/mm3 (0.0-0.1) 01/17/17 00:16 Metamyelocytes # 0.0 K/mm3 01/17/17 00:16 Myelocytes # 0.0 K/mm3 01/17/17 00:16 Promyelocytes # 0.0 K/mm3 01/17/17 00:16 Blast Cells # 0.0 K/mm3 01/17/17 00:16 WBC Morphology Not Reportable 01/17/17 00:16 Hypersegmented Neuts Not Reportable 01/17/17 00:16 Hyposegmented Neuts Not Reportable 01/17/17 00:16 Hypogranular Neuts Not Reportable 01/17/17 00:16 Smudge Cells Not Reportable 01/17/17 00:16 Toxic Granulation Few 01/17/17 00:16 Toxic Vacuolation Not Reportable 01/17/17 00:16 Dohle Bodies Not Reportable 01/17/17 00:16 Pelger-Huet Anomaly Not Reportable 01/17/17 00:16 Jeyson Rods Not Reportable 01/17/17 00:16 Platelet Estimate Appears normal 01/17/17 00:16 Clumped Platelets Not Reportable 01/17/17 00:16 Plt Clumps, EDTA Not Reportable 01/17/17 00:16 Large Platelets Not Reportable 01/17/17 00:16 Giant Platelets Not Reportable 01/17/17 00:16 Platelet Satelliting Not Reportable 01/17/17 00:16 Plt Morphology Comment Not Reportable 01/17/17 00:16 RBC Morphology Not Reportable 01/17/17 00:16 Dimorphic RBCs Not Reportable 01/17/17 00:16 Polychromasia Not Reportable 01/17/17 00:16 Hypochromasia Few 01/17/17 00:16 Poikilocytosis Not Reportable 01/17/17 00:16 Anisocytosis 1+ 01/17/17 00:16 Microcytosis Not Reportable 01/17/17 00:16 Macrocytosis Not Reportable 01/17/17 00:16 Spherocytes Not Reportable 01/17/17 00:16 Pappenheimer Bodies Not Reportable 01/17/17 00:16 Sickle Cells Not Reportable 01/17/17 00:16 Target Cells Not Reportable 01/17/17 00:16 Tear Drop Cells Not Reportable 01/17/17 00:16 Ovalocytes Not Reportable 01/17/17 00:16 Helmet Cells Not Reportable 01/17/17 00:16 [place] Bodies Not Reportable 01/17/17 00:16 [place] Rings Not Reportable 01/17/17 00:16 [place] Cells Not Reportable 01/17/17 00:16 Bite Cells Not Reportable 01/17/17 00:16 Crenated Cell Not Reportable 01/17/17 00:16 Elliptocytes Not Reportable 01/17/17 00:16 Acanthocytes (Spur) Not Reportable 01/17/17 00:16 Rouleaux Not Reportable 01/17/17 00:16 Hemoglobin C Crystals Not Reportable 01/17/17 00:16 Schistocytes Not Reportable 01/17/17 00:16 Malaria parasites Not Reportable 01/17/17 00:16 Albin Bodies Not Reportable 01/17/17 00:16 Hem Pathologist Commnt No 01/17/17 00:16 Sodium 140 mmol/L (137-145) 01/19/17 11:20 Potassium 4.3 mmol/L (3.6-5.0) 01/19/17 11:20 Chloride 102.6 mmol/L (98-107) 01/19/17 11:20 Carbon Dioxide 22 mmol/L (22-30) 01/19/17 11:20 Anion Gap 20 mmol/L 01/19/17 11:20 BUN 10 mg/dL (9-20) 01/19/17 11:20 Creatinine 0.9 mg/dL (0.8-1.5) 01/19/17 11:20 Estimated GFR > 60 ml/min 01/19/17 11:20 BUN/Creatinine Ratio 11.11 % 01/19/17 11:20 Glucose 128 mg/dL (75-100) H 01/19/17 11:20 POC Glucose 147 (70-105) H 01/17/17 00:37 Lactic Acid 1.90 mmol/L (0.7-2.0) 01/17/17 17:48 Calcium 9.1 mg/dL (8.4-10.2) 01/19/17 11:20 Magnesium 1.70 mg/dL (1.7-2.3) 01/17/17 00:16 Total Bilirubin 0.60 mg/dL (0.1-1.2) 01/17/17 00:16 AST 16 units/L (5-40) 01/17/17 00:16 ALT 11 units/L (7-56) 01/17/17 00:16 Alkaline Phosphatase 49 units/L (35-129) 01/17/17 00:16 Total Protein 6.3 g/dL (6.3-8.2) D 01/17/17 00:16 Albumin 3.5 g/dL (3.9-5) L 01/17/17 00:16 Albumin/Globulin Ratio 1.3 % 01/17/17 00:16 TSH 0.539 mlU/mL (0.270-4.200) 01/17/17 00:16 Urine Color Yellow (Yellow) 01/17/17 00:35 Urine Turbidity Clear (Clear) 01/17/17 00:35 Urine pH 5.0 (5.0-7.0) 01/17/17 00:35 Ur Specific [place] 1.027 (1.003-1.030) 01/17/17 00:35 Urine Protein <15 mg/dl mg/dL (Negative) 01/17/17 00:35 Urine Glucose (UA) Neg mg/dL (Negative) 01/17/17 00:35 Urine Ketones Tr mg/dL (Negative) 01/17/17 00:35 Urine Blood Neg (Negative) 01/17/17 00:35 Urine Nitrite Neg (Negative) 01/17/17 00:35 Urine Bilirubin Neg (Negative) 01/17/17 00:35 Urine Urobilinogen 4.0 mg/dL (<2.0) 01/17/17 00:35 Ur Leukocyte Esterase Neg (Negative) 01/17/17 00:35 Urine WBC (Auto) < 1.0 /HPF (0.0-6.0) 01/17/17 00:35 Urine RBC (Auto) < 1.0 /HPF (0.0-6.0) 01/17/17 00:35 U Epithel Cells (Auto) < 1.0 /HPF (0-13.0) 01/17/17 00:35 Urine Mucus 3+ /HPF 01/17/17 00:35 Salicylates < 0.3 mg/dL (2.8-20.0) L 01/17/17 00:16 Urine Opiates Screen Presumptive negative 01/17/17 00:35 Urine Methadone Screen Presumptive negative 01/17/17 00:35 Acetaminophen < 15.0 ug/mL (10.0-30.0) 01/17/17 00:16 Ur Barbiturates Screen Presumptive negative 01/17/17 00:35 Ur Phencyclidine Scrn Presumptive negative 01/17/17 00:35 Ur Amphetamines Screen Presumptive negative 01/17/17 00:35 U Benzodiazepines Scrn Presumptive negative 01/17/17 00:35 Urine Cocaine Screen Presumptive negative 01/17/17 00:35 U Marijuana (THC) Screen Presumptive negative 01/17/17 00:35 Drugs of Abuse Note Disclamer 01/17/17 00:35 Plasma/Serum Alcohol < 0.01 gm% (0-0.07) 01/17/17 00:16
[2017-01-21] MEDS: AUGMENTIN 500 MG PO SCH (22:45)
[2017-01-21] MEDS: REMERON PO SCH (22:45)
[2017-01-21] MEDS: HALDOL PO SCH ×2 (22:46→23:03)
[2017-01-21] MEDS: ARICEPT PO SCH (22:46)
[2017-01-22] MEDS: PEPCID PO SCH ×3 (06:21→22:47)
[2017-01-22] MEDS: NAMENDA XR PO SCH (10:47)
[2017-01-22] MEDS: AUGMENTIN 500 MG PO SCH ×2 (10:47→22:47)
[2017-01-22] MEDS: HEPARIN SUB-Q SCH ×2 (10:47→22:48)
[2017-01-22] MEDS: ATIVAN PO SCH (10:47)
--- NOTE | 2017-01-22 11:52 | Progress Note ---
Subjective - Reason for Consult Consult date: 01/22/17 Reason for consult: Psychiatry Follow-up - Chief Complaint Chief complaint: "Confused" This is a 66-year-old AA male seen in the medical unit for psychiatric evaluation. Today patient is calm, but confused during the assessment. Patient is still adamant about going to "[place]." Per his assigned RN, no behavioral disturbances today. Per the MAR, patient has refused his night dose of haldol x 2 days. No gestures of SI/HI's and AVH's. Mental Status Exam - Vital signs Last Vital Signs Temp 97.7 F 01/22/17 10:00 Pulse 94 H 01/22/17 10:00 Resp 18 01/22/17 10:00 BP 131/88 01/22/17 10:00 Pulse Ox 96 01/22/17 10:00 - Exam Narrative exam: MSE: Appearance: calm Behavior: regular eye contact Speech: regular rate and tone Mood: unable to assess Affect: labile Thought Process: unable to assess Thought Content: no gestures of SI/HI's and AVH's, disorganized Motor Activity: lying in bed Cognition: A/Ox 1 Insight: impaired Judgment: impaired Assessment and Plan Impression: Possible delirium superimposed by dementia vs. Dementia with behavioral disturbance, Dementia-unspecified type. Today patient is calm, but confused during the assessment. Patient in restraints. Recommendation: Continue Haldol 5 mg IM Q6hrs PRN for agitation, modify Haldol to 0.5 mg PO BID, and continue Remeron 7.5 mg PO HS for sleep/stimulate appetite. D/C'd Ativan. Delirium precautions as follows: 1. Frequently reorient patient and involve him/her in their care (simple explanations of procedures, tests, medications). 2. Lights on and shades open during daytime hours. 3. Try to avoid unnecessary interruptions to sleep during nighttime hours. 4. Obtain glasses, hearing aids from home if patient uses these at baseline. 5. Avoid medications that may exacerbate delirium (especially narcotics, benzodiazepines, barbiturates, ambien, lunesta, and medications with excessive anticholinergic properties). 6. D/C restraints when not indicated. Recommend that Case Management place patient at a SNF for dementia patients.
--- NOTE | 2017-01-22 14:33 | Progress Note ---
Assessment and Plan Assessment and plan: This is a 66-year-old Afro-Russian male presents the emergency department from home with complaint of a unresponsive episode in which the patient was awake with eyes open but was nonverbal and not following commands to his . Acute encephalopathy - could be due to dementia and underlying infection - will treat the underlying cause - Ct head was unremarkable - patient is now on restrain - haldol ordered for as needed agitation Dementia with behavioral disturbance - will continue his home medications - placed on aricept and exelon - as needed haldol for agitation - psych consult placed and recommended following: - Taper the Ativan to 0.5 mg PO daily x 2 days than D/C. Haldol to 5 mg IM Q6hrs PRN for agitation. Continue Haldol 2.5 mg PO BID, Remeron 7.5 mg PO HS for sleep/stimulate appetite SIRS - pt had low grade temp, elevated white count and tachycardia on admission - source of infection unknown - CXR clear, UA unremarkable - On emperic antibiotic - blood and urine cx negative - will cont him on oral augmentin for possible aspiration pneumonitis Abdominal pain - Patient denied and I cancelled the CT scan Poor appetite - tolerating full liquid - will follow nutrition recommendation - added remeron DVT/GI Px - heparin and PPI disposition: Plan was to discharge to subacute rehab but his refused subacute rehab and wants to take home. History Interval history: Patient was seen and evaluated this morning, patient was confused, patient is on restraints. Hospitalist Physical - Physical exam Narrative exam: Not in cardiopulmonary distress. The patient appeared well nourished and normally developed. Vital signs as documented. Head exam is unremarkable. No scleral icterus . Neck is without jugular venous distension, thyromegaly, or carotid bruits. Lungs are clear to auscultation. Cardiac exam reveals regular rate and Rhythm. First and second heart sounds normal. No murmurs, rubs or gallops. Abdominal exam reveals normal bowel sounds, no masses, no organomegaly and no aortic enlargement. Extremities are nonedematous and both femoral and pedal pulses are normal. MOTHER SUPERIOR:alert and oriented only to self. - Constitutional Vitals: Temp Pulse Resp BP Pulse Ox 97.7 F 94 H 18 131/88 96 01/22/17 10:01/22/17 10:01/22/17 10:17 10:00 01/22/17 10:00 Results - Labs CBC & Chem 7: 01/19/17 11:20 01/19/17 11:20 Labs: Laboratory Last Values WBC 10.4 K/mm3 (4.5-11.0) 01/19/17 11:20 RBC 4.13 M/mm3 (3.65-5.03) 01/19/17 11:20 Hgb 13.6 gm/dl (11.8-15.2) 01/19/17 11:20 Hct 40.5 % (35.5-45.6) 01/19/17 11:20 MCV 98 fl (84-94) H 01/19/17 11:20 MCH 33 pg (28-32) H 01/19/17 11:20 MCHC 34 % (32-34) 01/19/17 11:20 RDW 13.8 % (13.2-15.2) 01/19/17 11:20 Plt Count 167 K/mm3 (140-440) 01/19/17 11:20 Add Manual Diff Complete 01/17/17 00:16 Total Counted 100 01/17/17 00:16 Seg Neutrophils % Tender Coordinator 01/17/17 00:16 Seg Neuts % (Manual) 77.0 % (40.0-70.0) H 01/17/17 00:16 Band Neutrophils % 9.0 % 01/17/17 00:16 Lymphocytes % (Manual) 5.0 % (13.4-35.0) L 01/17/17 00:16 Reactive Lymphs % (Man) 0 % 01/17/17 00:16 Monocytes % (Manual) 9.0 % (0.0-7.3) H 01/17/17 00:16 Eosinophils % (Manual) 0 % (0.0-4.3) 01/17/17 00:16 Basophils % (Manual) 0 % (0.0-1.8) 01/17/17 00:16 Metamyelocytes % 0 % 01/17/17 00:16 Myelocytes % 0 % 01/17/17 00:16 Promyelocytes % 0 % 01/17/17 00:16 Blast Cells % 0 % 01/17/17 00:16 Nucleated RBC % Not Reportable 01/17/17 00:16 Seg Neutrophils # Man 13.9 K/mm3 (1.8-7.7) H 01/17/17 00:16 Band Neutrophils # 1.6 K/mm3 01/17/17 00:16 Lymphocytes # (Manual) 0.9 K/mm3 (1.2-5.4) L 01/17/17 00:16 Abs React Lymphs (Man) 0.0 K/mm3 01/17/17 00:16 Monocytes # (Manual) 1.6 K/mm3 (0.0-0.8) H 01/17/17 00:16 Eosinophils # (Manual) 0.0 K/mm3 (0.0-0.4) 01/17/17 00:16 Basophils # (Manual) 0.0 K/mm3 (0.0-0.1) 01/17/17 00:16 Metamyelocytes # 0.0 K/mm3 01/17/17 00:16 Myelocytes # 0.0 K/mm3 01/17/17 00:16 Promyelocytes # 0.0 K/mm3 01/17/17 00:16 Blast Cells # 0.0 K/mm3 01/17/17 00:16 WBC Morphology Not Reportable 01/17/17 00:16 Hypersegmented Neuts Not Reportable 01/17/17 00:16 Hyposegmented Neuts Not Reportable 01/17/17 00:16 Hypogranular Neuts Not Reportable 01/17/17 00:16 Smudge Cells Not Reportable 01/17/17 00:16 Toxic Granulation Few 01/17/17 00:16 Toxic Vacuolation Not Reportable 01/17/17 00:16 Dohle Bodies Not Reportable 01/17/17 00:16 Pelger-Huet Anomaly Not Reportable 01/17/17 00:16 Jeyson Rods Not Reportable 01/17/17 00:16 Platelet Estimate Appears normal 01/17/17 00:16 Clumped Platelets Not Reportable 01/17/17 00:16 Plt Clumps, EDTA Not Reportable 01/17/17 00:16 Large Platelets Not Reportable 01/17/17 00:16 Giant Platelets Not Reportable 01/17/17 00:16 Platelet Satelliting Not Reportable 01/17/17 00:16 Plt Morphology Comment Not Reportable 01/17/17 00:16 RBC Morphology Not Reportable 01/17/17 00:16 Dimorphic RBCs Not Reportable 01/17/17 00:16 Polychromasia Not Reportable 01/17/17 00:16 Hypochromasia Few 01/17/17 00:16 Poikilocytosis Not Reportable 01/17/17 00:16 Anisocytosis 1+ 01/17/17 00:16 Microcytosis Not Reportable 01/17/17 00:16 Macrocytosis Not Reportable 01/17/17 00:16 Spherocytes Not Reportable 01/17/17 00:16 Pappenheimer Bodies Not Reportable 01/17/17 00:16 Sickle Cells Not Reportable 01/17/17 00:16 Target Cells Not Reportable 01/17/17 00:16 Tear Drop Cells Not Reportable 01/17/17 00:16 Ovalocytes Not Reportable 01/17/17 00:16 Helmet Cells Not Reportable 01/17/17 00:16 Wong-[employer] [place] Bodies Not Reportable 01/17/17 00:16 [place] Rings Not Reportable 01/17/17 00:16 Sage Cells Not Reportable 01/17/17 00:16 Bite Cells Not Reportable 01/17/17 00:16 Crenated Cell Not Reportable 01/17/17 00:16 Elliptocytes Not Reportable 01/17/17 00:16 Acanthocytes (Spur) Not Reportable 01/17/17 00:16 Rouleaux Not Reportable 01/17/17 00:16 Hemoglobin C Crystals Not Reportable 01/17/17 00:16 Schistocytes Not Reportable 01/17/17 00:16 Malaria parasites Not Reportable 01/17/17 00:16 Albin Bodies Not Reportable 01/17/17 00:16 Hem Pathologist Commnt No 01/17/17 00:16 Sodium 140 mmol/L (137-145) 01/19/17 11:20 Potassium 4.3 mmol/L (3.6-5.0) 01/19/17 11:20 Chloride 102.6 mmol/L (98-107) 01/19/17 11:20 Carbon Dioxide 22 mmol/L (22-30) 01/19/17 11:20 Anion Gap 20 mmol/L 01/19/17 11:20 BUN 10 mg/dL (9-20) 01/19/17 11:20 Creatinine 0.9 mg/dL (0.8-1.5) 01/19/17 11:20 Estimated GFR > 60 ml/min 01/19/17 11:20 BUN/Creatinine Ratio 11.11 % 01/19/17 11:20 Glucose 128 mg/dL (75-100) H 01/19/17 11:20 POC Glucose 147 (70-105) H 01/17/17 00:37 Lactic Acid 1.90 mmol/L (0.7-2.0) 01/17/17 17:48 Calcium 9.1 mg/dL (8.4-10.2) 01/19/17 11:20 Magnesium 1.70 mg/dL (1.7-2.3) 01/17/17 00:16 Total Bilirubin 0.60 mg/dL (0.1-1.2) 01/17/17 00:16 AST 16 units/L (5-40) 01/17/17 00:16 ALT 11 units/L (7-56) 01/17/17 00:16 Alkaline Phosphatase 49 units/L (35-129) 01/17/17 00:16 Total Protein 6.3 g/dL (6.3-8.2) D 01/17/17 00:16 Albumin 3.5 g/dL (3.9-5) L 01/17/17 00:16 Albumin/Globulin Ratio 1.3 % 01/17/17 00:16 TSH 0.539 mlU/mL (0.270-4.200) 01/17/17 00:16 Urine Color Yellow (Yellow) 01/17/17 00:35 Urine Turbidity Clear (Clear) 01/17/17 00:35 Urine pH 5.0 (5.0-7.0) 01/17/17 00:35 Ur Specific [place] 1.027 (1.003-1.030) 01/17/17 00:35 Urine Protein <15 mg/dl mg/dL (Negative) 01/17/17 00:35 Urine Glucose (UA) Neg mg/dL (Negative) 01/17/17 00:35 Urine Ketones Tr mg/dL (Negative) 01/17/17 00:35 Urine Blood Neg (Negative) 01/17/17 00:35 Urine Nitrite Neg (Negative) 01/17/17 00:35 Urine Bilirubin Neg (Negative) 01/17/17 00:35 Urine Urobilinogen 4.0 mg/dL (<2.0) 01/17/17 00:35 Ur Leukocyte Esterase Neg (Negative) 01/17/17 00:35 Urine WBC (Auto) < 1.0 /HPF (0.0-6.0) 01/17/17 00:35 Urine RBC (Auto) < 1.0 /HPF (0.0-6.0) 01/17/17 00:35 U Epithel Cells (Auto) < 1.0 /HPF (0-13.0) 01/17/17 00:35 Urine Mucus 3+ /HPF 01/17/17 00:35 Salicylates < 0.3 mg/dL (2.8-20.0) L 01/17/17 00:16 Urine Opiates Screen Presumptive negative 01/17/17 00:35 Urine Methadone Screen Presumptive negative 01/17/17 00:35 Acetaminophen < 15.0 ug/mL (10.0-30.0) 01/17/17 00:16 Ur Barbiturates Screen Presumptive negative 01/17/17 00:35 Ur Phencyclidine Scrn Presumptive negative 01/17/17 00:35 Ur Amphetamines Screen Presumptive negative 01/17/17 00:35 U Benzodiazepines Scrn Presumptive negative 01/17/17 00:35 Urine Cocaine Screen Presumptive negative 01/17/17 00:35 U Marijuana (THC) Screen Presumptive negative 01/17/17 00:35 Drugs of Abuse Note Disclamer 01/17/17 00:35 Plasma/Serum Alcohol < 0.01 gm% (0-0.07) 01/17/17 00:16
[2017-01-22] MEDS: AUGMENTIN ORAL LIQD PO SCH (20:41)
[2017-01-22] MEDS: ARICEPT PO SCH (22:46)
[2017-01-22] MEDS: HALDOL PO SCH (22:47)
[2017-01-22] MEDS: REMERON PO SCH (22:47)
[2017-01-23] MEDS: NAMENDA XR PO SCH (10:39)
[2017-01-23] MEDS: AUGMENTIN 500 MG PO SCH (10:39)
[2017-01-23] MEDS: HALDOL PO SCH ×2 (10:39→21:25)
[2017-01-23] MEDS: PEPCID PO SCH ×2 (10:39→21:26)
[2017-01-23] MEDS: HEPARIN SUB-Q SCH ×2 (10:40→21:31)
--- NOTE | 2017-01-23 12:47 | Progress Note ---
Assessment and Plan Assessment and plan: This is a 66-year-old Afro-Welsh male presents the emergency department from home with complaint of a unresponsive episode in which the patient was awake with eyes open but was nonverbal and not following commands to his . Acute encephalopathy - could be due to dementia and underlying infection - will treat the underlying cause - Ct head was unremarkable - patient is now on restraints - haldol ordered for as needed agitation Dementia with behavioral disturbance - will continue his home medications - placed on aricept and exelon - as needed haldol for agitation - psych consult placed and recommended following: - Taper the Ativan to 0.5 mg PO daily x 2 days than D/C. Haldol to 5 mg IM Q6hrs PRN for agitation. Continue Haldol 2.5 mg PO BID, Remeron 7.5 mg PO HS for sleep/stimulate appetite - Psych consult appreciated SIRS - was treated with empiric antibiotics and now d/keny Abdominal pain - resolved Poor appetite - advance his diet to regular diet but he refused to eat DVT/GI Px - heparin and PPI disposition: Plan was to discharge to subacute rehab but his refused subacute rehab and wants to take home. The patient is not ready to go home. History Interval history: Patient was seen and evaluated this morning, patient was confused, patient is on restraints. Patient refused to eat and drink. Hospitalist Physical - Physical exam Narrative exam: Not in cardiopulmonary distress. The patient appeared well nourished and normally developed. Vital signs as documented. Head exam is unremarkable. No scleral icterus . Neck is without jugular venous distension, thyromegaly, or carotid bruits. Lungs are clear to auscultation. Cardiac exam reveals regular rate and Rhythm. First and second heart sounds normal. No murmurs, rubs or gallops. Abdominal exam reveals normal bowel sounds, no masses, no organomegaly and no aortic enlargement. Extremities are nonedematous and both femoral and pedal pulses are normal. HIGH RISK OB: alert and oriented only to self. - Constitutional Vitals: Temp Pulse Resp BP Pulse Ox 97.9 F 85 20 107/77 98 01/23/17 09:57 01/23/17 10:00 01/23/17 10:00 01/23/17 09:57 01/22/17 22:00 Results - Labs CBC & Chem 7: 01/19/17 11:20 01/19/17 11:20 Labs: Laboratory Last Values WBC 10.4 K/mm3 (4.5-11.0) 01/19/17 11:20 RBC 4.13 M/mm3 (3.65-5.03) 01/19/17 11:20 Hgb 13.6 gm/dl (11.8-15.2) 01/19/17 11:20 Hct 40.5 % (35.5-45.6) 01/19/17 11:20 MCV 98 fl (84-94) H 01/19/17 11:20 MCH 33 pg (28-32) H 01/19/17 11:20 MCHC 34 % (32-34) 01/19/17 11:20 RDW 13.8 % (13.2-15.2) 01/19/17 11:20 Plt Count 167 K/mm3 (140-440) 01/19/17 11:20 Add Manual Diff Complete 01/17/17 00:16 Total Counted 100 01/17/17 00:16 Seg Neutrophils % People Greeter 01/17/17 00:16 Seg Neuts % (Manual) 77.0 % (40.0-70.0) H 01/17/17 00:16 Band Neutrophils % 9.0 % 01/17/17 00:16 Lymphocytes % (Manual) 5.0 % (13.4-35.0) L 01/17/17 00:16 Reactive Lymphs % (Man) 0 % 01/17/17 00:16 Monocytes % (Manual) 9.0 % (0.0-7.3) H 01/17/17 00:16 Eosinophils % (Manual) 0 % (0.0-4.3) 01/17/17 00:16 Basophils % (Manual) 0 % (0.0-1.8) 01/17/17 00:16 Metamyelocytes % 0 % 01/17/17 00:16 Myelocytes % 0 % 01/17/17 00:16 Promyelocytes % 0 % 01/17/17 00:16 Blast Cells % 0 % 01/17/17 00:16 Nucleated RBC % Not Reportable 01/17/17 00:16 Seg Neutrophils # Man 13.9 K/mm3 (1.8-7.7) H 01/17/17 00:16 Band Neutrophils # 1.6 K/mm3 01/17/17 00:16 Lymphocytes # (Manual) 0.9 K/mm3 (1.2-5.4) L 01/17/17 00:16 Abs React Lymphs (Man) 0.0 K/mm3 01/17/17 00:16 Monocytes # (Manual) 1.6 K/mm3 (0.0-0.8) H 01/17/17 00:16 Eosinophils # (Manual) 0.0 K/mm3 (0.0-0.4) 01/17/17 00:16 Basophils # (Manual) 0.0 K/mm3 (0.0-0.1) 01/17/17 00:16 Metamyelocytes # 0.0 K/mm3 01/17/17 00:16 Myelocytes # 0.0 K/mm3 01/17/17 00:16 Promyelocytes # 0.0 K/mm3 01/17/17 00:16 Blast Cells # 0.0 K/mm3 01/17/17 00:16 WBC Morphology Not Reportable 01/17/17 00:16 Hypersegmented Neuts Not Reportable 01/17/17 00:16 Hyposegmented Neuts Not Reportable 01/17/17 00:16 Hypogranular Neuts Not Reportable 01/17/17 00:16 Smudge Cells Not Reportable 01/17/17 00:16 Toxic Granulation Few 01/17/17 00:16 Toxic Vacuolation Not Reportable 01/17/17 00:16 Dohle Bodies Not Reportable 01/17/17 00:16 Pelger-Huet Anomaly Not Reportable 01/17/17 00:16 Jeyson Rods Not Reportable 01/17/17 00:16 Platelet Estimate Appears normal 01/17/17 00:16 Clumped Platelets Not Reportable 01/17/17 00:16 Plt Clumps, EDTA Not Reportable 01/17/17 00:16 Large Platelets Not Reportable 01/17/17 00:16 Giant Platelets Not Reportable 01/17/17 00:16 Platelet Satelliting Not Reportable 01/17/17 00:16 Plt Morphology Comment Not Reportable 01/17/17 00:16 RBC Morphology Not Reportable 01/17/17 00:16 Dimorphic RBCs Not Reportable 01/17/17 00:16 Polychromasia Not Reportable 01/17/17 00:16 Hypochromasia Few 01/17/17 00:16 Poikilocytosis Not Reportable 01/17/17 00:16 Anisocytosis 1+ 01/17/17 00:16 Microcytosis Not Reportable 01/17/17 00:16 Macrocytosis Not Reportable 01/17/17 00:16 Spherocytes Not Reportable 01/17/17 00:16 Pappenheimer Bodies Not Reportable 01/17/17 00:16 Sickle Cells Not Reportable 01/17/17 00:16 Target Cells Not Reportable 01/17/17 00:16 Tear Drop Cells Not Reportable 01/17/17 00:16 Ovalocytes Not Reportable 01/17/17 00:16 Helmet Cells Not Reportable 01/17/17 00:16 [place] Bodies Not Reportable 01/17/17 00:16 [place] Rings Not Reportable 01/17/17 00:16 Sage Cells Not Reportable 01/17/17 00:16 Bite Cells Not Reportable 01/17/17 00:16 Crenated Cell Not Reportable 01/17/17 00:16 Elliptocytes Not Reportable 01/17/17 00:16 Acanthocytes (Spur) Not Reportable 01/17/17 00:16 Rouleaux Not Reportable 01/17/17 00:16 Hemoglobin C Crystals Not Reportable 01/17/17 00:16 Schistocytes Not Reportable 01/17/17 00:16 Malaria parasites Not Reportable 01/17/17 00:16 Albin Bodies Not Reportable 01/17/17 00:16 Hem Pathologist Commnt No 01/17/17 00:16 Sodium 140 mmol/L (137-145) 01/19/17 11:20 Potassium 4.3 mmol/L (3.6-5.0) 01/19/17 11:20 Chloride 102.6 mmol/L (98-107) 01/19/17 11:20 Carbon Dioxide 22 mmol/L (22-30) 01/19/17 11:20 Anion Gap 20 mmol/L 01/19/17 11:20 BUN 10 mg/dL (9-20) 01/19/17 11:20 Creatinine 0.9 mg/dL (0.8-1.5) 01/19/17 11:20 Estimated GFR > 60 ml/min 01/19/17 11:20 BUN/Creatinine Ratio 11.11 % 01/19/17 11:20 Glucose 128 mg/dL (75-100) H 01/19/17 11:20 POC Glucose 147 (70-105) H 01/17/17 00:37 Lactic Acid 1.90 mmol/L (0.7-2.0) 01/17/17 17:48 Calcium 9.1 mg/dL (8.4-10.2) 01/19/17 11:20 Magnesium 1.70 mg/dL (1.7-2.3) 01/17/17 00:16 Total Bilirubin 0.60 mg/dL (0.1-1.2) 01/17/17 00:16 AST 16 units/L (5-40) 01/17/17 00:16 ALT 11 units/L (7-56) 01/17/17 00:16 Alkaline Phosphatase 49 units/L (35-129) 01/17/17 00:16 Total Protein 6.3 g/dL (6.3-8.2) D 01/17/17 00:16 Albumin 3.5 g/dL (3.9-5) L 01/17/17 00:16 Albumin/Globulin Ratio 1.3 % 01/17/17 00:16 TSH 0.539 mlU/mL (0.270-4.200) 01/17/17 00:16 Urine Color Yellow (Yellow) 01/17/17 00:35 Urine Turbidity Clear (Clear) 01/17/17 00:35 Urine pH 5.0 (5.0-7.0) 01/17/17 00:35 Ur Specific [place] 1.027 (1.003-1.030) 01/17/17 00:35 Urine Protein <15 mg/dl mg/dL (Negative) 01/17/17 00:35 Urine Glucose (UA) Neg mg/dL (Negative) 01/17/17 00:35 Urine Ketones Tr mg/dL (Negative) 01/17/17 00:35 Urine Blood Neg (Negative) 01/17/17 00:35 Urine Nitrite Neg (Negative) 01/17/17 00:35 Urine Bilirubin Neg (Negative) 01/17/17 00:35 Urine Urobilinogen 4.0 mg/dL (<2.0) 01/17/17 00:35 Ur Leukocyte Esterase Neg (Negative) 01/17/17 00:35 Urine WBC (Auto) < 1.0 /HPF (0.0-6.0) 01/17/17 00:35 Urine RBC (Auto) < 1.0 /HPF (0.0-6.0) 01/17/17 00:35 U Epithel Cells (Auto) < 1.0 /HPF (0-13.0) 01/17/17 00:35 Urine Mucus 3+ /HPF 01/17/17 00:35 Salicylates < 0.3 mg/dL (2.8-20.0) L 01/17/17 00:16 Urine Opiates Screen Presumptive negative 01/17/17 00:35 Urine Methadone Screen Presumptive negative 01/17/17 00:35 Acetaminophen < 15.0 ug/mL (10.0-30.0) 01/17/17 00:16 Ur Barbiturates Screen Presumptive negative 01/17/17 00:35 Ur Phencyclidine Scrn Presumptive negative 01/17/17 00:35 Ur Amphetamines Screen Presumptive negative 01/17/17 00:35 U Benzodiazepines Scrn Presumptive negative 01/17/17 00:35 Urine Cocaine Screen Presumptive negative 01/17/17 00:35 U Marijuana (THC) Screen Presumptive negative 01/17/17 00:35 Drugs of Abuse Note Disclamer 01/17/17 00:35 Plasma/Serum Alcohol < 0.01 gm% (0-0.07) 01/17/17 00:16
--- NOTE | 2017-01-23 13:05 | Progress Note ---
Subjective - Reason for Consult Consult date: 01/23/17 Reason for consult: Psychiatry Follow-up - Chief Complaint Chief complaint: "Confused" This is a 66-year-old AA male seen in the medical unit for psychiatric evaluation. Today patient is calm, but confused during the assessment. Patient would answer to his name when called. Patient still in restraints. Per his assigned RN, he was very agitated during shift change. Per the staff, no sleep disturbances noted. No gestures of SI/HI's and AVH's. Mental Status Exam - Vital signs Last Vital Signs Temp 97.9 F 01/23/17 09:57 Pulse 85 01/23/17 10:00 Resp 20 01/23/17 10:00 BP 107/77 01/23/17 09:57 Pulse Ox 98 01/22/17 22:00 - Exam Narrative exam: MSE: Appearance: calm Behavior: regular eye contact Speech: regular rate and tone Mood: unable to assess Affect: flat Thought Process: unable to assess Thought Content: no gestures of SI/HI's and AVH's, disorganized Motor Activity: lying in bed Cognition: A/Ox 1 Insight: impaired Judgment: impaired Assessment and Plan Impression: Possible delirium superimposed by dementia vs. Dementia with behavioral disturbance, Dementia-unspecified type. Today patient is calm, but confused during the assessment. Patient in restraints. Recommendation: Continue Haldol 5 mg IM Q6hrs PRN for agitation, modify Haldol to 1 mg PO BID, and continue Remeron 7.5 mg PO HS for sleep/stimulate appetite. Patient is pending placement to SNF. Delirium precautions as follows: 1. Frequently reorient patient and involve him/her in their care (simple explanations of procedures, tests, medications). 2. Lights on and shades open during daytime hours. 3. Try to avoid unnecessary interruptions to sleep during nighttime hours. 4. Obtain glasses, hearing aids from home if patient uses these at baseline. 5. Avoid medications that may exacerbate delirium (especially narcotics, benzodiazepines, barbiturates, ambien, lunesta, and medications with excessive anticholinergic properties). 6. D/C restraints when not indicated. Recommend that Case Management place patient at a SNF for dementia patients.
[2017-01-23] MEDS: REMERON PO SCH (21:25)
[2017-01-23] MEDS: ARICEPT PO SCH (21:25)
[2017-01-24] MEDS: HALDOL IM PRN (05:17)
[2017-01-24] MEDS: HALDOL PO SCH ×2 (10:34→22:09)
[2017-01-24] MEDS: NAMENDA XR PO SCH (10:35)
[2017-01-24] MEDS: HEPARIN SUB-Q SCH ×2 (10:35→22:09)
[2017-01-24] MEDS: PEPCID PO SCH ×2 (10:35→22:08)
--- NOTE | 2017-01-24 12:46 | Progress Note ---
Assessment and Plan Assessment and plan: This is a 66-year-old Afro-Russian male presents the emergency department from home with complaint of a unresponsive episode in which the patient was awake with eyes open but was nonverbal and not following commands to his . Acute encephalopathy - could be due to dementia and underlying infection - will treat the underlying cause - Ct head was unremarkable - patient is now on restraints - haldol ordered for as needed agitation Dementia with behavioral disturbance - will continue his home medications - placed on aricept and exelon - as needed haldol for agitation - psych consult placed and recommended following: - Taper the Ativan to 0.5 mg PO daily x 2 days than D/C. Haldol to 5 mg IM Q6hrs PRN for agitation. Continue Haldol 2.5 mg PO BID, Remeron 7.5 mg PO HS for sleep/stimulate appetite - Psych consult appreciated SIRS - was treated with empiric antibiotics and now d/keny Abdominal pain - resolved Poor appetite - advance his diet to regular diet but he refused to eat DVT/GI Px - heparin and PPI disposition: Plan was to discharge to subacute rehab but his refused subacute rehab and wants to take home. The patient is not ready to go home. History Interval history: Patient was seen and evaluated this morning, patient off restraints. Patient refused to eat and drink. Hospitalist Physical - Physical exam Narrative exam: Not in cardiopulmonary distress. The patient appeared well nourished and normally developed. Vital signs as documented. Head exam is unremarkable. No scleral icterus . Neck is without jugular venous distension, thyromegaly, or carotid bruits. Lungs are clear to auscultation. Cardiac exam reveals regular rate and Rhythm. First and second heart sounds normal. No murmurs, rubs or gallops. Abdominal exam reveals normal bowel sounds, no masses, no organomegaly and no aortic enlargement. Extremities are nonedematous and both femoral and pedal pulses are normal. 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 - Constitutional Vitals: Temp Pulse Resp BP Pulse Ox 98.2 F 81 18 119/79 98 01/24/17 10:00 01/24/17 10:00 01/24/17 10:00 01/24/17 10:00 01/23/17 22:00 Results - Labs CBC & Chem 7: 01/19/17 11:20 01/19/17 11:20 Labs: Laboratory Last Values WBC 10.4 K/mm3 (4.5-11.0) 01/19/17 11:20 RBC 4.13 M/mm3 (3.65-5.03) 01/19/17 11:20 Hgb 13.6 gm/dl (11.8-15.2) 01/19/17 11:20 Hct 40.5 % (35.5-45.6) 01/19/17 11:20 MCV 98 fl (84-94) H 01/19/17 11:20 MCH 33 pg (28-32) H 01/19/17 11:20 MCHC 34 % (32-34) 01/19/17 11:20 RDW 13.8 % (13.2-15.2) 01/19/17 11:20 Plt Count 167 K/mm3 (140-440) 01/19/17 11:20 Add Manual Diff Complete 01/17/17 00:16 Total Counted 100 01/17/17 00:16 Seg Neutrophils % Commercial Account Officer 01/17/17 00:16 Seg Neuts % (Manual) 77.0 % (40.0-70.0) H 01/17/17 00:16 Band Neutrophils % 9.0 % 01/17/17 00:16 Lymphocytes % (Manual) 5.0 % (13.4-35.0) L 01/17/17 00:16 Reactive Lymphs % (Man) 0 % 01/17/17 00:16 Monocytes % (Manual) 9.0 % (0.0-7.3) H 01/17/17 00:16 Eosinophils % (Manual) 0 % (0.0-4.3) 01/17/17 00:16 Basophils % (Manual) 0 % (0.0-1.8) 01/17/17 00:16 Metamyelocytes % 0 % 01/17/17 00:16 Myelocytes % 0 % 01/17/17 00:16 Promyelocytes % 0 % 01/17/17 00:16 Blast Cells % 0 % 01/17/17 00:16 Nucleated RBC % Not Reportable 01/17/17 00:16 Seg Neutrophils # Man 13.9 K/mm3 (1.8-7.7) H 01/17/17 00:16 Band Neutrophils # 1.6 K/mm3 01/17/17 00:16 Lymphocytes # (Manual) 0.9 K/mm3 (1.2-5.4) L 01/17/17 00:16 Abs React Lymphs (Man) 0.0 K/mm3 01/17/17 00:16 Monocytes # (Manual) 1.6 K/mm3 (0.0-0.8) H 01/17/17 00:16 Eosinophils # (Manual) 0.0 K/mm3 (0.0-0.4) 01/17/17 00:16 Basophils # (Manual) 0.0 K/mm3 (0.0-0.1) 01/17/17 00:16 Metamyelocytes # 0.0 K/mm3 01/17/17 00:16 Myelocytes # 0.0 K/mm3 01/17/17 00:16 Promyelocytes # 0.0 K/mm3 01/17/17 00:16 Blast Cells # 0.0 K/mm3 01/17/17 00:16 WBC Morphology Not Reportable 01/17/17 00:16 Hypersegmented Neuts Not Reportable 01/17/17 00:16 Hyposegmented Neuts Not Reportable 01/17/17 00:16 Hypogranular Neuts Not Reportable 01/17/17 00:16 Smudge Cells Not Reportable 01/17/17 00:16 Toxic Granulation Few 01/17/17 00:16 Toxic Vacuolation Not Reportable 01/17/17 00:16 Dohle Bodies Not Reportable 01/17/17 00:16 Pelger-Huet Anomaly Not Reportable 01/17/17 00:16 Ejyson Rods Not Reportable 01/17/17 00:16 Platelet Estimate Appears normal 01/17/17 00:16 Clumped Platelets Not Reportable 01/17/17 00:16 Plt Clumps, EDTA Not Reportable 01/17/17 00:16 Large Platelets Not Reportable 01/17/17 00:16 Giant Platelets Not Reportable 01/17/17 00:16 Platelet Satelliting Not Reportable 01/17/17 00:16 Plt Morphology Comment Not Reportable 01/17/17 00:16 RBC Morphology Not Reportable 01/17/17 00:16 Dimorphic RBCs Not Reportable 01/17/17 00:16 Polychromasia Not Reportable 01/17/17 00:16 Hypochromasia Few 01/17/17 00:16 Poikilocytosis Not Reportable 01/17/17 00:16 Anisocytosis 1+ 01/17/17 00:16 Microcytosis Not Reportable 01/17/17 00:16 Macrocytosis Not Reportable 01/17/17 00:16 Spherocytes Not Reportable 01/17/17 00:16 Pappenheimer Bodies Not Reportable 01/17/17 00:16 Sickle Cells Not Reportable 01/17/17 00:16 Target Cells Not Reportable 01/17/17 00:16 Tear Drop Cells Not Reportable 01/17/17 00:16 Ovalocytes Not Reportable 01/17/17 00:16 Helmet Cells Not Reportable 01/17/17 00:16 [place] Bodies Not Reportable 01/17/17 00:16 [place] Rings Not Reportable 01/17/17 00:16 [place] Cells Not Reportable 01/17/17 00:16 Bite Cells Not Reportable 01/17/17 00:16 Crenated Cell Not Reportable 01/17/17 00:16 Elliptocytes Not Reportable 01/17/17 00:16 Acanthocytes (Spur) Not Reportable 01/17/17 00:16 Rouleaux Not Reportable 01/17/17 00:16 Hemoglobin C Crystals Not Reportable 01/17/17 00:16 Schistocytes Not Reportable 01/17/17 00:16 Malaria parasites Not Reportable 01/17/17 00:16 Albin Bodies Not Reportable 01/17/17 00:16 Hem Pathologist Commnt No 01/17/17 00:16 Sodium 140 mmol/L (137-145) 01/19/17 11:20 Potassium 4.3 mmol/L (3.6-5.0) 01/19/17 11:20 Chloride 102.6 mmol/L (98-107) 01/19/17 11:20 Carbon Dioxide 22 mmol/L (22-30) 01/19/17 11:20 Anion Gap 20 mmol/L 01/19/17 11:20 BUN 10 mg/dL (9-20) 01/19/17 11:20 Creatinine 0.9 mg/dL (0.8-1.5) 01/19/17 11:20 Estimated GFR > 60 ml/min 01/19/17 11:20 BUN/Creatinine Ratio 11.11 % 01/19/17 11:20 Glucose 128 mg/dL (75-100) H 01/19/17 11:20 POC Glucose 147 (70-105) H 01/17/17 00:37 Lactic Acid 1.90 mmol/L (0.7-2.0) 01/17/17 17:48 Calcium 9.1 mg/dL (8.4-10.2) 01/19/17 11:20 Magnesium 1.70 mg/dL (1.7-2.3) 01/17/17 00:16 Total Bilirubin 0.60 mg/dL (0.1-1.2) 01/17/17 00:16 AST 16 units/L (5-40) 01/17/17 00:16 ALT 11 units/L (7-56) 01/17/17 00:16 Alkaline Phosphatase 49 units/L (35-129) 01/17/17 00:16 Total Protein 6.3 g/dL (6.3-8.2) D 01/17/17 00:16 Albumin 3.5 g/dL (3.9-5) L 01/17/17 00:16 Albumin/Globulin Ratio 1.3 % 01/17/17 00:16 TSH 0.539 mlU/mL (0.270-4.200) 01/17/17 00:16 Urine Color Yellow (Yellow) 01/17/17 00:35 Urine Turbidity Clear (Clear) 01/17/17 00:35 Urine pH 5.0 (5.0-7.0) 01/17/17 00:35 Ur Specific [place] 1.027 (1.003-1.030) 01/17/17 00:35 Urine Protein <15 mg/dl mg/dL (Negative) 01/17/17 00:35 Urine Glucose (UA) Neg mg/dL (Negative) 01/17/17 00:35 Urine Ketones Tr mg/dL (Negative) 01/17/17 00:35 Urine Blood Neg (Negative) 01/17/17 00:35 Urine Nitrite Neg (Negative) 01/17/17 00:35 Urine Bilirubin Neg (Negative) 01/17/17 00:35 Urine Urobilinogen 4.0 mg/dL (<2.0) 01/17/17 00:35 Ur Leukocyte Esterase Neg (Negative) 01/17/17 00:35 Urine WBC (Auto) < 1.0 /HPF (0.0-6.0) 01/17/17 00:35 Urine RBC (Auto) < 1.0 /HPF (0.0-6.0) 01/17/17 00:35 U Epithel Cells (Auto) < 1.0 /HPF (0-13.0) 01/17/17 00:35 Urine Mucus 3+ /HPF 01/17/17 00:35 Salicylates < 0.3 mg/dL (2.8-20.0) L 01/17/17 00:16 Urine Opiates Screen Presumptive negative 01/17/17 00:35 Urine Methadone Screen Presumptive negative 01/17/17 00:35 Acetaminophen < 15.0 ug/mL (10.0-30.0) 01/17/17 00:16 Ur Barbiturates Screen Presumptive negative 01/17/17 00:35 Ur Phencyclidine Scrn Presumptive negative 01/17/17 00:35 Ur Amphetamines Screen Presumptive negative 01/17/17 00:35 U Benzodiazepines Scrn Presumptive negative 01/17/17 00:35 Urine Cocaine Screen Presumptive negative 01/17/17 00:35 U Marijuana (THC) Screen Presumptive negative 01/17/17 00:35 Drugs of Abuse Note Disclamer 01/17/17 00:35 Plasma/Serum Alcohol < 0.01 gm% (0-0.07) 01/17/17 00:16
--- NOTE | 2017-01-24 15:45 | Progress Note ---
Subjective - Reason for Consult Consult date: 01/24/17 Reason for consult: follow up - Chief Complaint Chief complaint: "Confused" This is a 66-year-old AA male seen in the medical unit for psychiatric evaluation. Today patient is calm, but confused during the assessment. Patient would answer to his name when called. Patient has been out of restraints today. The nurse reports he fought with staff when he was fed but it did not continue. No prn medication needed for agitation. Mental Status Exam - Vital signs Last Vital Signs Temp 98.2 F 01/24/17 10:00 Pulse 81 01/24/17 10:00 Resp 18 01/24/17 10:00 BP 119/79 01/24/17 10:00 Pulse Ox 98 01/23/17 22:00 Assessment and Plan MSE: Appearance: calm Behavior: regular eye contact Speech: mumbling Mood: unable to assess Affect: flat Thought Process: unable to assess Thought Content: no gestures of SI/HI's and AVH's Motor Activity: lying in bed Cognition: A/Ox 1 Insight: impaired Judgment: impaired Assessment and Plan Impression: Possible delirium superimposed by dementia vs. Dementia with behavioral disturbance, Dementia-unspecified type. Today patient is calm, but confused during the assessment. Patient in restraints. Recommendation: Continue Haldol 5 mg IM Q6hrs PRN for agitation, modify Haldol to 1 mg PO BID, and continue Remeron 7.5 mg PO HS for sleep/stimulate appetite. Patient is pending placement to SNF. Delirium precautions as follows: 1. Frequently reorient patient and involve him/her in their care (simple explanations of procedures, tests, medications). 2. Lights on and shades open during daytime hours. 3. Try to avoid unnecessary interruptions to sleep during nighttime hours. 4. Obtain glasses, hearing aids from home if patient uses these at baseline. 5. Avoid medications that may exacerbate delirium (especially narcotics, benzodiazepines, barbiturates, ambien, lunesta, and medications with excessive anticholinergic properties). 6. D/C restraints when not indicated. Recommend that Case Management place patient at a SNF for dementia patients.
[2017-01-24] MEDS: REMERON PO SCH (22:09)
[2017-01-24] MEDS: ARICEPT PO SCH (22:10)
[2017-01-25] MEDS: PEPCID PO SCH ×2 (09:41→21:49)
[2017-01-25] MEDS: HALDOL PO SCH ×2 (09:41→21:49)
[2017-01-25] MEDS: HEPARIN SUB-Q SCH ×2 (09:42→22:29)
[2017-01-25] MEDS: NAMENDA XR PO SCH (09:42)
--- NOTE | 2017-01-25 13:21 | Progress Note ---
Assessment and Plan Assessment and plan: This is a 66-year-old Afro-[place]oz[place]ican male presents the emergency department from home with complaint of a unresponsive episode in which the patient was awake with eyes open but was nonverbal and not following commands to his . Acute encephalopathy - could be due to dementia and underlying infection - will treat the underlying cause - Ct head was unremarkable - patient is now on restraints - haldol ordered for as needed agitation Dementia with behavioral disturbance - will continue his home medications - placed on aricept and exelon - as needed haldol for agitation - psych consult placed and recommended following: - Taper the Ativan to 0.5 mg PO daily x 2 days than D/C. Haldol to 5 mg IM Q6hrs PRN for agitation. Continue Haldol 2.5 mg PO BID, Remeron 7.5 mg PO HS for sleep/stimulate appetite - Psych consult appreciated SIRS - was treated with empiric antibiotics and now d/keny Abdominal pain - resolved Poor appetite - advance his diet to regular diet but he refused to eat DVT/GI Px - heparin and PPI disposition: Plan was to discharge to subacute rehab but his refused subacute rehab and wants to take home. The patient is not ready to go home. History Interval history: Patient was seen and evaluated this morning, patient off restraints. Patient refused to eat and drink. Hospitalist Physical - Physical exam Narrative exam: Not in cardiopulmonary distress. The patient appeared well nourished and normally developed. Vital signs as documented. Head exam is unremarkable. No scleral icterus . Neck is without jugular venous distension, thyromegaly, or carotid bruits. Lungs are clear to auscultation. Cardiac exam reveals regular rate and Rhythm. First and second heart sounds normal. No murmurs, rubs or gallops. Abdominal exam reveals normal bowel sounds, no masses, no organomegaly and no aortic enlargement. Extremities are nonedematous and both femoral and pedal pulses are normal. 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 - Constitutional Vitals: Temp Pulse Resp BP Pulse Ox 98.2 F 71 20 113/73 100 01/25/17 10:00 01/25/17 10:00 01/25/17 10:01/25/17 10:01/24/17 22:00 Results - Labs CBC & Chem 7: 01/19/17 11:20 01/19/17 11:20 Labs: Laboratory Last Values WBC 10.4 K/mm3 (4.5-11.0) 01/19/17 11:20 RBC 4.13 M/mm3 (3.65-5.03) 01/19/17 11:20 Hgb 13.6 gm/dl (11.8-15.2) 01/19/17 11:20 Hct 40.5 % (35.5-45.6) 01/19/17 11:20 MCV 98 fl (84-94) H 01/19/17 11:20 MCH 33 pg (28-32) H 01/19/17 11:20 MCHC 34 % (32-34) 01/19/17 11:20 RDW 13.8 % (13.2-15.2) 01/19/17 11:20 Plt Count 167 K/mm3 (140-440) 01/19/17 11:20 Add Manual Diff Complete 01/17/17 00:16 Total Counted 100 01/17/17 00:16 Seg Neutrophils % Cuff Cutter 01/17/17 00:16 Seg Neuts % (Manual) 77.0 % (40.0-70.0) H 01/17/17 00:16 Band Neutrophils % 9.0 % 01/17/17 00:16 Lymphocytes % (Manual) 5.0 % (13.4-35.0) L 01/17/17 00:16 Reactive Lymphs % (Man) 0 % 01/17/17 00:16 Monocytes % (Manual) 9.0 % (0.0-7.3) H 01/17/17 00:16 Eosinophils % (Manual) 0 % (0.0-4.3) 01/17/17 00:16 Basophils % (Manual) 0 % (0.0-1.8) 01/17/17 00:16 Metamyelocytes % 0 % 01/17/17 00:16 Myelocytes % 0 % 01/17/17 00:16 Promyelocytes % 0 % 01/17/17 00:16 Blast Cells % 0 % 01/17/17 00:16 Nucleated RBC % Not Reportable 01/17/17 00:16 Seg Neutrophils # Man 13.9 K/mm3 (1.8-7.7) H 01/17/17 00:16 Band Neutrophils # 1.6 K/mm3 01/17/17 00:16 Lymphocytes # (Manual) 0.9 K/mm3 (1.2-5.4) L 01/17/17 00:16 Abs React Lymphs (Man) 0.0 K/mm3 01/17/17 00:16 Monocytes # (Manual) 1.6 K/mm3 (0.0-0.8) H 01/17/17 00:16 Eosinophils # (Manual) 0.0 K/mm3 (0.0-0.4) 01/17/17 00:16 Basophils # (Manual) 0.0 K/mm3 (0.0-0.1) 01/17/17 00:16 Metamyelocytes # 0.0 K/mm3 01/17/17 00:16 Myelocytes # 0.0 K/mm3 01/17/17 00:16 Promyelocytes # 0.0 K/mm3 01/17/17 00:16 Blast Cells # 0.0 K/mm3 01/17/17 00:16 WBC Morphology Not Reportable 01/17/17 00:16 Hypersegmented Neuts Not Reportable 01/17/17 00:16 Hyposegmented Neuts Not Reportable 01/17/17 00:16 Hypogranular Neuts Not Reportable 01/17/17 00:16 Smudge Cells Not Reportable 01/17/17 00:16 Toxic Granulation Few 01/17/17 00:16 Toxic Vacuolation Not Reportable 01/17/17 00:16 Dohle Bodies Not Reportable 01/17/17 00:16 Pelger-Huet Anomaly Not Reportable 01/17/17 00:16 Jeyson Rods Not Reportable 01/17/17 00:16 Platelet Estimate Appears normal 01/17/17 00:16 Clumped Platelets Not Reportable 01/17/17 00:16 Plt Clumps, EDTA Not Reportable 01/17/17 00:16 Large Platelets Not Reportable 01/17/17 00:16 Giant Platelets Not Reportable 01/17/17 00:16 Platelet Satelliting Not Reportable 01/17/17 00:16 Plt Morphology Comment Not Reportable 01/17/17 00:16 RBC Morphology Not Reportable 01/17/17 00:16 Dimorphic RBCs Not Reportable 01/17/17 00:16 Polychromasia Not Reportable 01/17/17 00:16 Hypochromasia Few 01/17/17 00:16 Poikilocytosis Not Reportable 01/17/17 00:16 Anisocytosis 1+ 01/17/17 00:16 Microcytosis Not Reportable 01/17/17 00:16 Macrocytosis Not Reportable 01/17/17 00:16 Spherocytes Not Reportable 01/17/17 00:16 Pappenheimer Bodies Not Reportable 01/17/17 00:16 Sickle Cells Not Reportable 01/17/17 00:16 Target Cells Not Reportable 01/17/17 00:16 Tear Drop Cells Not Reportable 01/17/17 00:16 Ovalocytes Not Reportable 01/17/17 00:16 Helmet Cells Not Reportable 01/17/17 00:[address] [place] Bodies Not Reportable 01/17/17 00:16 [place] Rings Not Reportable 01/17/17 00:16 [place] Cells Not Reportable 01/17/17 00:16 Bite Cells Not Reportable 01/17/17 00:16 Crenated Cell Not Reportable 01/17/17 00:16 Elliptocytes Not Reportable 01/17/17 00:16 Acanthocytes (Spur) Not Reportable 01/17/17 00:16 Rouleaux Not Reportable 01/17/17 00:16 Hemoglobin C Crystals Not Reportable 01/17/17 00:16 Schistocytes Not Reportable 01/17/17 00:16 Malaria parasites Not Reportable 01/17/17 00:16 Albin Bodies Not Reportable 01/17/17 00:16 Hem Pathologist Commnt No 01/17/17 00:16 Sodium 140 mmol/L (137-145) 01/19/17 11:20 Potassium 4.3 mmol/L (3.6-5.0) 01/19/17 11:20 Chloride 102.6 mmol/L (98-107) 01/19/17 11:20 Carbon Dioxide 22 mmol/L (22-30) 01/19/17 11:20 Anion Gap 20 mmol/L 01/19/17 11:20 BUN 10 mg/dL (9-20) 01/19/17 11:20 Creatinine 0.9 mg/dL (0.8-1.5) 01/19/17 11:20 Estimated GFR > 60 ml/min 01/19/17 11:20 BUN/Creatinine Ratio 11.11 % 01/19/17 11:20 Glucose 128 mg/dL (75-100) H 01/19/17 11:20 POC Glucose 147 (70-105) H 01/17/17 00:37 Lactic Acid 1.90 mmol/L (0.7-2.0) 01/17/17 17:48 Calcium 9.1 mg/dL (8.4-10.2) 01/19/17 11:20 Magnesium 1.70 mg/dL (1.7-2.3) 01/17/17 00:16 Total Bilirubin 0.60 mg/dL (0.1-1.2) 01/17/17 00:16 AST 16 units/L (5-40) 01/17/17 00:16 ALT 11 units/L (7-56) 01/17/17 00:16 Alkaline Phosphatase 49 units/L (35-129) 01/17/17 00:16 Total Protein 6.3 g/dL (6.3-8.2) D 01/17/17 00:16 Albumin 3.5 g/dL (3.9-5) L 01/17/17 00:16 Albumin/Globulin Ratio 1.3 % 01/17/17 00:16 TSH 0.539 mlU/mL (0.270-4.200) 01/17/17 00:16 Urine Color Yellow (Yellow) 01/17/17 00:35 Urine Turbidity Clear (Clear) 01/17/17 00:35 Urine pH 5.0 (5.0-7.0) 01/17/17 00:35 Ur Specific [place] 1.027 (1.003-1.030) 01/17/17 00:35 Urine Protein <15 mg/dl mg/dL (Negative) 01/17/17 00:35 Urine Glucose (UA) Neg mg/dL (Negative) 01/17/17 00:35 Urine Ketones Tr mg/dL (Negative) 01/17/17 00:35 Urine Blood Neg (Negative) 01/17/17 00:35 Urine Nitrite Neg (Negative) 01/17/17 00:35 Urine Bilirubin Neg (Negative) 01/17/17 00:35 Urine Urobilinogen 4.0 mg/dL (<2.0) 01/17/17 00:35 Ur Leukocyte Esterase Neg (Negative) 01/17/17 00:35 Urine WBC (Auto) < 1.0 /HPF (0.0-6.0) 01/17/17 00:35 Urine RBC (Auto) < 1.0 /HPF (0.0-6.0) 01/17/17 00:35 U Epithel Cells (Auto) < 1.0 /HPF (0-13.0) 01/17/17 00:35 Urine Mucus 3+ /HPF 01/17/17 00:35 Salicylates < 0.3 mg/dL (2.8-20.0) L 01/17/17 00:16 Urine Opiates Screen Presumptive negative 01/17/17 00:35 Urine Methadone Screen Presumptive negative 01/17/17 00:35 Acetaminophen < 15.0 ug/mL (10.0-30.0) 01/17/17 00:16 Ur Barbiturates Screen Presumptive negative 01/17/17 00:35 Ur Phencyclidine Scrn Presumptive negative 01/17/17 00:35 Ur Amphetamines Screen Presumptive negative 01/17/17 00:35 U Benzodiazepines Scrn Presumptive negative 01/17/17 00:35 Urine Cocaine Screen Presumptive negative 01/17/17 00:35 U Marijuana (THC) Screen Presumptive negative 01/17/17 00:35 Drugs of Abuse Note Disclamer 01/17/17 00:35 Plasma/Serum Alcohol < 0.01 gm% (0-0.07) 01/17/17 00:16
--- NOTE | 2017-01-25 15:45 | Progress Note ---
Subjective - Reason for Consult Consult date: 01/25/17 Reason for consult: follow up - Chief Complaint Chief complaint: "Rest" This is a 66-year-old AA male seen in the medical unit for psychiatric follow up. Today patient is calm, but confused during the assessment. He mumbled to himself and said he wanted to rest and then closed his eyes. Patient would answer to his name when called. Patient has been out of restraints today and yesterday. The nurse reports he fought with staff when he was fed and when he went back to bed after being in a chair for a few hours. His po intake mostly consists of milk and the staff crushes his medications to give in the milk. No prn medication needed for agitation. Mental Status Exam - Vital signs Last Vital Signs Temp 98.2 F 01/25/17 10:00 Pulse 71 01/25/17 10:00 Resp 20 01/25/17 10:00 BP 113/73 01/25/17 10:00 Pulse Ox 100 01/24/17 22:00 Assessment and Plan MSE: Appearance: calm Behavior: regular eye contact Speech: mumbling Mood: unable to assess Affect: flat Thought Process: unable to assess Thought Content: no gestures of SI/HI's and AVH's Motor Activity: lying in bed Cognition: A/Ox 1 Insight: impaired Judgment: impaired Assessment and Plan Impression: Possible delirium superimposed by dementia vs. Dementia with behavioral disturbance, Dementia-unspecified type. Today patient is calm, but confused during the assessment. Patient not in restraints. Recommendation: Continue Haldol 5 mg IM Q6hrs PRN for agitation, modify Haldol to 1 mg PO BID, and continue Remeron 7.5 mg PO HS for sleep/stimulate appetite. Patient is pending placement to SNF. Delirium precautions as follows: 1. Frequently reorient patient and involve him/her in their care (simple explanations of procedures, tests, medications). 2. Lights on and shades open during daytime hours. 3. Try to avoid unnecessary interruptions to sleep during nighttime hours. 4. Obtain glasses, hearing aids from home if patient uses these at baseline. 5. Avoid medications that may exacerbate delirium (especially narcotics, benzodiazepines, barbiturates, ambien, lunesta, and medications with excessive anticholinergic properties). 6. D/C restraints when not indicated. Recommend that Case Management place patient at a SNF for dementia patients.
[2017-01-25] MEDS: REMERON PO SCH (21:48)
[2017-01-25] MEDS: ARICEPT PO SCH (21:49)
[2017-01-26] MEDS: HALDOL PO SCH ×2 (10:52→23:26)
[2017-01-26] MEDS: PEPCID PO SCH ×2 (10:52→23:26)
[2017-01-26] MEDS: NAMENDA XR PO SCH (10:52)
[2017-01-26] MEDS: HEPARIN SUB-Q SCH (10:53)
--- NOTE | 2017-01-26 11:18 | Progress Note ---
Subjective - Reason for Consult Consult date: 01/26/17 Reason for consult: Psychiatry Follow-up - Chief Complaint Chief complaint: "In wheelchair" This is a 66-year-old AA male seen in the medical unit for psychiatric follow up. Today patient is calm, but confused during the assessment. He was sitting in a wheelchair without being in restraints. Per his assigned RN, once the patient is discharged home with his , [facility] will provide home health services. Patient takes his medications with milk. No gestures of SI/HI's and AVH's. No prn medication given for agitation in the last 48 hours. Mental Status Exam - Vital signs Last Vital Signs Temp 98.2 F 01/25/17 10:00 Pulse 73 01/26/17 04:00 Resp 18 01/26/17 04:00 BP 105/70 01/26/17 04:00 Pulse Ox 96 01/26/17 04:00 - Exam Narrative exam: MSE: Appearance: calm Behavior: regular eye contact Speech: regular rate and tone Mood: unable to assess Affect: flat Thought Process: unable to assess Thought Content: no gestures of SI/HI's and AVH's, disorganized Motor Activity: sitting in wheelchair Cognition: A/Ox 1 Insight: impaired Judgment: impaired Assessment and Plan Impression: Possible delirium superimposed by dementia vs. Dementia with behavioral disturbance, Dementia-unspecified type. Today patient is calm, but confused during the assessment. Patient not in restraints, sitting in wheelchair. Recommendation: Continue Haldol 5 mg IM Q6hrs PRN for agitation, Haldol to 1 mg PO BID, and Remeron 7.5 mg PO HS for sleep/stimulate appetite. Patient will receive home health services through [facility]. Delirium precautions as follows: 1. Frequently reorient patient and involve him/her in their care (simple explanations of procedures, tests, medications). 2. Lights on and shades open during daytime hours. 3. Try to avoid unnecessary interruptions to sleep during nighttime hours. 4. Obtain glasses, hearing aids from home if patient uses these at baseline. 5. Avoid medications that may exacerbate delirium (especially narcotics, benzodiazepines, barbiturates, ambien, lunesta, and medications with excessive anticholinergic properties). 6. D/C restraints when not indicated. Recommend that Case Management place patient at a SNF for dementia patients.
--- NOTE | 2017-01-26 17:19 | Progress Note ---
Assessment and Plan Assessment and plan: This is a 66-year-old Afro-Bur[place]ian male presents the emergency department from home with complaint of a unresponsive episode Acute encephalopathy - Resolved - could be due to dementia - CT head was unremarkable - patient is now off restraints - haldol ordered for as needed agitation Dementia with behavioral disturbance - will continue his home medications - placed on aricept and exelon - as needed haldol for agitation - psych consult placed and recommended following: - Continue Haldol 2.5 mg PO BID, Remeron 7.5 mg PO HS for sleep/stimulate appetite - Psych consult appreciated SIRS - was treated with empiric antibiotics and now d/keny Abdominal pain - resolved Poor appetite - Regular diet DVT/GI Px - heparin and PPI disposition: Plan was to discharge to subacute rehab but his refused subacute rehab and wants to take home. The patient is now ready to go home but his is on vacation and will be back tomorrow. History Interval history: Patient was seen and evaluated this morning, patient off restraints. Patient was calm and cooperative. Hospitalist Physical - Physical exam Narrative exam: Not in cardiopulmonary distress. The patient appeared well nourished and normally developed. Vital signs as documented. Head exam is unremarkable. No scleral icterus . Neck is without jugular venous distension, thyromegaly, or carotid bruits. Lungs are clear to auscultation. Cardiac exam reveals regular rate and Rhythm. First and second heart sounds normal. No murmurs, rubs or gallops. Abdominal exam reveals normal bowel sounds, no masses, no organomegaly and no aortic enlargement. Extremities are nonedematous and both femoral and pedal pulses are normal. GEOLOGICAL SPECIALIST: alert and oriented only to self. - Constitutional Vitals: Temp Pulse Resp BP Pulse Ox 97.8 F 98 H 18 117/78 99 01/26/17 10:00 01/26/17 10:00 01/26/17 10:00 01/26/17 10:00 01/26/17 10:00 Results - Labs CBC & Chem 7: 01/19/17 11:20 01/19/17 11:20 Labs: Laboratory Last Values WBC 10.4 K/mm3 (4.5-11.0) 01/19/17 11:20 RBC 4.13 M/mm3 (3.65-5.03) 01/19/17 11:20 Hgb 13.6 gm/dl (11.8-15.2) 01/19/17 11:20 Hct 40.5 % (35.5-45.6) 01/19/17 11:20 MCV 98 fl (84-94) H 01/19/17 11:20 MCH 33 pg (28-32) H 01/19/17 11:20 MCHC 34 % (32-34) 01/19/17 11:20 RDW 13.8 % (13.2-15.2) 01/19/17 11:20 Plt Count 167 K/mm3 (140-440) 01/19/17 11:20 Add Manual Diff Complete 01/17/17 00:16 Total Counted 100 01/17/17 00:16 Seg Neutrophils % Nurse Discharge Planner 01/17/17 00:16 Seg Neuts % (Manual) 77.0 % (40.0-70.0) H 01/17/17 00:16 Band Neutrophils % 9.0 % 01/17/17 00:16 Lymphocytes % (Manual) 5.0 % (13.4-35.0) L 01/17/17 00:16 Reactive Lymphs % (Man) 0 % 01/17/17 00:16 Monocytes % (Manual) 9.0 % (0.0-7.3) H 01/17/17 00:16 Eosinophils % (Manual) 0 % (0.0-4.3) 01/17/17 00:16 Basophils % (Manual) 0 % (0.0-1.8) 01/17/17 00:16 Metamyelocytes % 0 % 01/17/17 00:16 Myelocytes % 0 % 01/17/17 00:16 Promyelocytes % 0 % 01/17/17 00:16 Blast Cells % 0 % 01/17/17 00:16 Nucleated RBC % Not Reportable 01/17/17 00:16 Seg Neutrophils # Man 13.9 K/mm3 (1.8-7.7) H 01/17/17 00:16 Band Neutrophils # 1.6 K/mm3 01/17/17 00:16 Lymphocytes # (Manual) 0.9 K/mm3 (1.2-5.4) L 01/17/17 00:16 Abs React Lymphs (Man) 0.0 K/mm3 01/17/17 00:16 Monocytes # (Manual) 1.6 K/mm3 (0.0-0.8) H 01/17/17 00:16 Eosinophils # (Manual) 0.0 K/mm3 (0.0-0.4) 01/17/17 00:16 Basophils # (Manual) 0.0 K/mm3 (0.0-0.1) 01/17/17 00:16 Metamyelocytes # 0.0 K/mm3 01/17/17 00:16 Myelocytes # 0.0 K/mm3 01/17/17 00:16 Promyelocytes # 0.0 K/mm3 01/17/17 00:16 Blast Cells # 0.0 K/mm3 01/17/17 00:16 WBC Morphology Not Reportable 01/17/17 00:16 Hypersegmented Neuts Not Reportable 01/17/17 00:16 Hyposegmented Neuts Not Reportable 01/17/17 00:16 Hypogranular Neuts Not Reportable 01/17/17 00:16 Smudge Cells Not Reportable 01/17/17 00:16 Toxic Granulation Few 01/17/17 00:16 Toxic Vacuolation Not Reportable 01/17/17 00:16 Dohle Bodies Not Reportable 01/17/17 00:16 Pelger-Huet Anomaly Not Reportable 01/17/17 00:16 Jeyson Rods Not Reportable 01/17/17 00:16 Platelet Estimate Appears normal 01/17/17 00:16 Clumped Platelets Not Reportable 01/17/17 00:16 Plt Clumps, EDTA Not Reportable 01/17/17 00:16 Large Platelets Not Reportable 01/17/17 00:16 Giant Platelets Not Reportable 01/17/17 00:16 Platelet Satelliting Not Reportable 01/17/17 00:16 Plt Morphology Comment Not Reportable 01/17/17 00:16 RBC Morphology Not Reportable 01/17/17 00:16 Dimorphic RBCs Not Reportable 01/17/17 00:16 Polychromasia Not Reportable 01/17/17 00:16 Hypochromasia Few 01/17/17 00:16 Poikilocytosis Not Reportable 01/17/17 00:16 Anisocytosis 1+ 01/17/17 00:16 Microcytosis Not Reportable 01/17/17 00:16 Macrocytosis Not Reportable 01/17/17 00:16 Spherocytes Not Reportable 01/17/17 00:16 Pappenheimer Bodies Not Reportable 01/17/17 00:16 Sickle Cells Not Reportable 01/17/17 00:16 Target Cells Not Reportable 01/17/17 00:16 Tear Drop Cells Not Reportable 01/17/17 00:16 Ovalocytes Not Reportable 01/17/17 00:16 Helmet Cells Not Reportable 01/17/17 00:[address] [employer] [place] Bodies Not Reportable 01/17/17 00:16 [employer] Rings Not Reportable 01/17/17 00:16 [place] Cells Not Reportable 01/17/17 00:16 Bite Cells Not Reportable 01/17/17 00:16 Crenated Cell Not Reportable 01/17/17 00:16 Elliptocytes Not Reportable 01/17/17 00:16 Acanthocytes (Spur) Not Reportable 01/17/17 00:16 Rouleaux Not Reportable 01/17/17 00:16 Hemoglobin C Crystals Not Reportable 01/17/17 00:16 Schistocytes Not Reportable 01/17/17 00:16 Malaria parasites Not Reportable 01/17/17 00:16 Albin Bodies Not Reportable 01/17/17 00:16 Hem Pathologist Commnt No 01/17/17 00:16 Sodium 140 mmol/L (137-145) 01/19/17 11:20 Potassium 4.3 mmol/L (3.6-5.0) 01/19/17 11:20 Chloride 102.6 mmol/L (98-107) 01/19/17 11:20 Carbon Dioxide 22 mmol/L (22-30) 01/19/17 11:20 Anion Gap 20 mmol/L 01/19/17 11:20 BUN 10 mg/dL (9-20) 01/19/17 11:20 Creatinine 0.9 mg/dL (0.8-1.5) 01/19/17 11:20 Estimated GFR > 60 ml/min 01/19/17 11:20 BUN/Creatinine Ratio 11.11 % 01/19/17 11:20 Glucose 128 mg/dL (75-100) H 01/19/17 11:20 POC Glucose 147 (70-105) H 01/17/17 00:37 Lactic Acid 1.90 mmol/L (0.7-2.0) 01/17/17 17:48 Calcium 9.1 mg/dL (8.4-10.2) 01/19/17 11:20 Magnesium 1.70 mg/dL (1.7-2.3) 01/17/17 00:16 Total Bilirubin 0.60 mg/dL (0.1-1.2) 01/17/17 00:16 AST 16 units/L (5-40) 01/17/17 00:16 ALT 11 units/L (7-56) 01/17/17 00:16 Alkaline Phosphatase 49 units/L (35-129) 01/17/17 00:16 Total Protein 6.3 g/dL (6.3-8.2) D 01/17/17 00:16 Albumin 3.5 g/dL (3.9-5) L 01/17/17 00:16 Albumin/Globulin Ratio 1.3 % 01/17/17 00:16 TSH 0.539 mlU/mL (0.270-4.200) 01/17/17 00:16 Urine Color Yellow (Yellow) 01/17/17 00:35 Urine Turbidity Clear (Clear) 01/17/17 00:35 Urine pH 5.0 (5.0-7.0) 01/17/17 00:35 Ur Specific [place] 1.027 (1.003-1.030) 01/17/17 00:35 Urine Protein <15 mg/dl mg/dL (Negative) 01/17/17 00:35 Urine Glucose (UA) Neg mg/dL (Negative) 01/17/17 00:35 Urine Ketones Tr mg/dL (Negative) 01/17/17 00:35 Urine Blood Neg (Negative) 01/17/17 00:35 Urine Nitrite Neg (Negative) 01/17/17 00:35 Urine Bilirubin Neg (Negative) 01/17/17 00:35 Urine Urobilinogen 4.0 mg/dL (<2.0) 01/17/17 00:35 Ur Leukocyte Esterase Neg (Negative) 01/17/17 00:35 Urine WBC (Auto) < 1.0 /HPF (0.0-6.0) 01/17/17 00:35 Urine RBC (Auto) < 1.0 /HPF (0.0-6.0) 01/17/17 00:35 U Epithel Cells (Auto) < 1.0 /HPF (0-13.0) 01/17/17 00:35 Urine Mucus 3+ /HPF 01/17/17 00:35 Salicylates < 0.3 mg/dL (2.8-20.0) L 01/17/17 00:16 Urine Opiates Screen Presumptive negative 01/17/17 00:35 Urine Methadone Screen Presumptive negative 01/17/17 00:35 Acetaminophen < 15.0 ug/mL (10.0-30.0) 01/17/17 00:16 Ur Barbiturates Screen Presumptive negative 01/17/17 00:35 Ur Phencyclidine Scrn Presumptive negative 01/17/17 00:35 Ur Amphetamines Screen Presumptive negative 01/17/17 00:35 U Benzodiazepines Scrn Presumptive negative 01/17/17 00:35 Urine Cocaine Screen Presumptive negative 01/17/17 00:35 U Marijuana (THC) Screen Presumptive negative 01/17/17 00:35 Drugs of Abuse Note Disclamer 01/17/17 00:35 Plasma/Serum Alcohol < 0.01 gm% (0-0.07) 01/17/17 00:16
[2017-01-26] MEDS: REMERON PO SCH (23:26)
[2017-01-26] MEDS: ARICEPT PO SCH (23:27)
[2017-01-27] MEDS: HEPARIN SUB-Q SCH ×3 (00:09→23:45)
[2017-01-27] MEDS: HALDOL PO SCH ×2 (09:52→23:45)
[2017-01-27] MEDS: NAMENDA XR PO SCH (09:52)
[2017-01-27] MEDS: PEPCID PO SCH ×2 (09:52→23:45)
--- NOTE | 2017-01-27 16:29 | Progress Note ---
Subjective - Reason for Consult Consult date: 01/27/17 Reason for consult: Psychiatry Follow-up - Chief Complaint Chief complaint: "What do you want" This is a 66-year-old AA male seen in the medical unit for psychiatric follow up. Today patient is calm, but confused during the assessment. Patient is in restraints. He continue to talk about returning to [place] per previous assessments. No gestures of SI/HI's. Per the MAR, patient has been taking PO medications. Mental Status Exam - Vital signs Last Vital Signs Temp 97.5 F L 01/27/17 10:00 Pulse 90 01/27/17 12:00 Resp 20 01/27/17 12:00 BP 126/75 01/27/17 12:00 Pulse Ox 98 01/27/17 12:00 - Exam Narrative exam: MSE: Appearance: calm Behavior: regular eye contact Speech: regular rate and tone Mood: unable to assess Affect: flat Thought Process: unable to assess Thought Content: no gestures of SI/HI's and AVH's, disorganized Motor Activity: lying in bed Cognition: A/Ox 1 Insight: impaired Judgment: impaired Assessment and Plan Impression: Possible delirium superimposed by dementia vs. Dementia with behavioral disturbance, Dementia-unspecified type. Today patient is calm, but confused during the assessment. Patient in restraints. Recommendation: Continue Haldol 5 mg IM Q6hrs PRN for agitation, Haldol to 1 mg PO BID, and Remeron 7.5 mg PO HS for sleep/stimulate appetite. Patient will receive home health services through [facility]. Delirium precautions as follows: 1. Frequently reorient patient and involve him/her in their care (simple explanations of procedures, tests, medications). 2. Lights on and shades open during daytime hours. 3. Try to avoid unnecessary interruptions to sleep during nighttime hours. 4. Obtain glasses, hearing aids from home if patient uses these at baseline. 5. Avoid medications that may exacerbate delirium (especially narcotics, benzodiazepines, barbiturates, ambien, lunesta, and medications with excessive anticholinergic properties). 6. D/C restraints when not indicated. Recommend that Case Management place patient at a SNF for dementia patients.
--- NOTE | 2017-01-27 18:29 | Progress Note ---
Assessment and Plan Assessment and plan: Current to ER documentation. This is a 66-year-old Afro-Argentine male presents the emergency department from home with complaint of a unresponsive episode in which the patient was awake with eyes open but was nonverbal and not following commands to his . The patient does have a history of dementia but usually is AAO 1-2. He appears to have gone back towards his normal baseline mental status upon presentation to the hospital. There were no complaints of any fever but the patient did present with a low-grade fever. Due to the patient's current medical status and his history of dementia he is a poor historian himself. The patient was recently here 2-3 days ago when the was having trouble getting him to eat enough food and therefore also take his medications. Before that the patient had been at [facility] for behavioral disturbances. Family refusing to the patient placed in a longterm facility with dementia unit which is probably appropriate for this patient considering the duration of this event. Acute encephalopathy - Resolved - could be due to dementia - CT head was unremarkable - patient is now off restraints - haldol ordered for as needed agitation Dementia with behavioral disturbance with possible superimposed delirium - will continue his home medications - placed on aricept and exelon - as needed haldol for agitation - psych consult placed and recommended following: - Continue Haldol 1 mg PO BID, and 5 mg IM every 6 hours when necessary Remeron 7.5 mg PO HS for sleep/stimulate appetite - Psych consult appreciated - Delirium with sundowning precautions SIRS - was treated with empiric antibiotics and now d/keny Abdominal pain - resolved Poor appetite - Regular diet DVT/GI Px - heparin and PPI disposition: Plan was to discharge to subacute rehab but his refused subacute rehab and wants to take home. The patient is now ready to go home but his is on vacation, she supposed to be back today. I did place a call to discuss with the so that we could plan on discharge but no callback noted today. History Interval history: Patient seen and examined today in no acute distress Varela Zhong strains due to aggressive behavior and put him on linezolid for safety. Again call placed by me to spouse not call back received BX. Discussed with caregiver so far in the hospital included psychiatry symptoms are not new and has been present for about a year now. Possibly exacerbated prior to presenting to the hospital. Also appears spouse is out of town and is no one the patient placed once daily patient home on her return. Hospitalist Physical - Physical exam Narrative exam: VITAL SIGNS: Reviewed. GENERAL: The patient appeared well nourished and normally developed. Vital signs as documented. HEAD: No signs of head trauma. EYES: Pupils are equal. Extraocular motions intact. EARS: Hearing grossly intact. MOUTH: Oropharynx is normal. NECK: No adenopathy, no JVD. CHEST: Chest with clear breath sounds bilaterally. No wheezes, rales, or rhonchi. CARDIAC: Regular rate and rhythm. S1 and S2, without murmurs, gallops, or rubs. VASCULAR: No Edema. Peripheral pulses normal and equal in all extremities. ABDOMEN: Soft, without detectable tenderness. No sign of distention. No rebound or guarding, and no masses palpated. Bowel Sounds normal. MUSCULOSKELETAL: Good range of motion of all major joints. Extremities without clubbing, cyanosis or edema. NEUROLOGIC EXAM: Alert and oriented x to person only speech noncoherent.. No focal sensory or strength deficits. Follows commands. PSYCHIATRIC: Mood normal. SKIN: No rash or lesions. - Constitutional Vitals: Temp Pulse Resp BP Pulse Ox 97.5 F L 133 H 20 138/90 98 01/27/17 10:00 01/27/17 16:00 01/27/17 16:00 01/27/17 16:00 01/27/17 16:00 Results - Labs CBC & Chem 7: 01/19/17 11:20 01/19/17 11:20 Labs: Laboratory Last Values WBC 10.4 K/mm3 (4.5-11.0) 01/19/17 11:20 RBC 4.13 M/mm3 (3.65-5.03) 01/19/17 11:20 Hgb 13.6 gm/dl (11.8-15.2) 01/19/17 11:20 Hct 40.5 % (35.5-45.6) 01/19/17 11:20 MCV 98 fl (84-94) H 01/19/17 11:20 MCH 33 pg (28-32) H 01/19/17 11:20 MCHC 34 % (32-34) 01/19/17 11:20 RDW 13.8 % (13.2-15.2) 01/19/17 11:20 Plt Count 167 K/mm3 (140-440) 01/19/17 11:20 Add Manual Diff Complete 01/17/17 00:16 Total Counted 100 01/17/17 00:16 Seg Neutrophils % Fourth Grade Teacher 01/17/17 00:16 Seg Neuts % (Manual) 77.0 % (40.0-70.0) H 01/17/17 00:16 Band Neutrophils % 9.0 % 01/17/17 00:16 Lymphocytes % (Manual) 5.0 % (13.4-35.0) L 01/17/17 00:16 Reactive Lymphs % (Man) 0 % 01/17/17 00:16 Monocytes % (Manual) 9.0 % (0.0-7.3) H 01/17/17 00:16 Eosinophils % (Manual) 0 % (0.0-4.3) 01/17/17 00:16 Basophils % (Manual) 0 % (0.0-1.8) 01/17/17 00:16 Metamyelocytes % 0 % 01/17/17 00:16 Myelocytes % 0 % 01/17/17 00:16 Promyelocytes % 0 % 01/17/17 00:16 Blast Cells % 0 % 01/17/17 00:16 Nucleated RBC % Not Reportable 01/17/17 00:16 Seg Neutrophils # Man 13.9 K/mm3 (1.8-7.7) H 01/17/17 00:16 Band Neutrophils # 1.6 K/mm3 01/17/17 00:16 Lymphocytes # (Manual) 0.9 K/mm3 (1.2-5.4) L 01/17/17 00:16 Abs React Lymphs (Man) 0.0 K/mm3 01/17/17 00:16 Monocytes # (Manual) 1.6 K/mm3 (0.0-0.8) H 01/17/17 00:16 Eosinophils # (Manual) 0.0 K/mm3 (0.0-0.4) 01/17/17 00:16 Basophils # (Manual) 0.0 K/mm3 (0.0-0.1) 01/17/17 00:16 Metamyelocytes # 0.0 K/mm3 01/17/17 00:16 Myelocytes # 0.0 K/mm3 01/17/17 00:16 Promyelocytes # 0.0 K/mm3 01/17/17 00:16 Blast Cells # 0.0 K/mm3 01/17/17 00:16 WBC Morphology Not Reportable 01/17/17 00:16 Hypersegmented Neuts Not Reportable 01/17/17 00:16 Hyposegmented Neuts Not Reportable 01/17/17 00:16 Hypogranular Neuts Not Reportable 01/17/17 00:16 Smudge Cells Not Reportable 01/17/17 00:16 Toxic Granulation Few 01/17/17 00:16 Toxic Vacuolation Not Reportable 01/17/17 00:16 Dohle Bodies Not Reportable 01/17/17 00:16 Pelger-Huet Anomaly Not Reportable 01/17/17 00:16 Jeyson Rods Not Reportable 01/17/17 00:16 Platelet Estimate Appears normal 01/17/17 00:16 Clumped Platelets Not Reportable 01/17/17 00:16 Plt Clumps, EDTA Not Reportable 01/17/17 00:16 Large Platelets Not Reportable 01/17/17 00:16 Giant Platelets Not Reportable 01/17/17 00:16 Platelet Satelliting Not Reportable 01/17/17 00:16 Plt Morphology Comment Not Reportable 01/17/17 00:16 RBC Morphology Not Reportable 01/17/17 00:16 Dimorphic RBCs Not Reportable 01/17/17 00:16 Polychromasia Not Reportable 01/17/17 00:16 Hypochromasia Few 01/17/17 00:16 Poikilocytosis Not Reportable 01/17/17 00:16 Anisocytosis 1+ 01/17/17 00:16 Microcytosis Not Reportable 01/17/17 00:16 Macrocytosis Not Reportable 01/17/17 00:16 Spherocytes Not Reportable 01/17/17 00:16 Pappenheimer Bodies Not Reportable 01/17/17 00:16 Sickle Cells Not Reportable 01/17/17 00:16 Target Cells Not Reportable 01/17/17 00:16 Tear Drop Cells Not Reportable 01/17/17 00:16 Ovalocytes Not Reportable 01/17/17 00:16 Helmet Cells Not Reportable 01/17/17 00:16 Wong-[employer] Bodies Not Reportable 01/17/17 00:16 [place] Rings Not Reportable 01/17/17 00:16 [place] Cells Not Reportable 01/17/17 00:16 Bite Cells Not Reportable 01/17/17 00:16 Crenated Cell Not Reportable 01/17/17 00:16 Elliptocytes Not Reportable 01/17/17 00:16 Acanthocytes (Spur) Not Reportable 01/17/17 00:16 Rouleaux Not Reportable 01/17/17 00:16 Hemoglobin C Crystals Not Reportable 01/17/17 00:16 Schistocytes Not Reportable 01/17/17 00:16 Malaria parasites Not Reportable 01/17/17 00:16 Albin Bodies Not Reportable 01/17/17 00:16 Hem Pathologist Commnt No 01/17/17 00:16 Sodium 140 mmol/L (137-145) 01/19/17 11:20 Potassium 4.3 mmol/L (3.6-5.0) 01/19/17 11:20 Chloride 102.6 mmol/L (98-107) 01/19/17 11:20 Carbon Dioxide 22 mmol/L (22-30) 01/19/17 11:20 Anion Gap 20 mmol/L 01/19/17 11:20 BUN 10 mg/dL (9-20) 01/19/17 11:20 Creatinine 0.9 mg/dL (0.8-1.5) 01/19/17 11:20 Estimated GFR > 60 ml/min 01/19/17 11:20 BUN/Creatinine Ratio 11.11 % 01/19/17 11:20 Glucose 128 mg/dL (75-100) H 01/19/17 11:20 POC Glucose 147 (70-105) H 01/17/17 00:37 Lactic Acid 1.90 mmol/L (0.7-2.0) 01/17/17 17:48 Calcium 9.1 mg/dL (8.4-10.2) 01/19/17 11:20 Magnesium 1.70 mg/dL (1.7-2.3) 01/17/17 00:16 Total Bilirubin 0.60 mg/dL (0.1-1.2) 01/17/17 00:16 AST 16 units/L (5-40) 01/17/17 00:16 ALT 11 units/L (7-56) 01/17/17 00:16 Alkaline Phosphatase 49 units/L (35-129) 01/17/17 00:16 Total Protein 6.3 g/dL (6.3-8.2) D 01/17/17 00:16 Albumin 3.5 g/dL (3.9-5) L 01/17/17 00:16 Albumin/Globulin Ratio 1.3 % 01/17/17 00:16 TSH 0.539 mlU/mL (0.270-4.200) 01/17/17 00:16 Urine Color Yellow (Yellow) 01/17/17 00:35 Urine Turbidity Clear (Clear) 01/17/17 00:35 Urine pH 5.0 (5.0-7.0) 01/17/17 00:35 Ur Specific [place] 1.027 (1.003-1.030) 01/17/17 00:35 Urine Protein <15 mg/dl mg/dL (Negative) 01/17/17 00:35 Urine Glucose (UA) Neg mg/dL (Negative) 01/17/17 00:35 Urine Ketones Tr mg/dL (Negative) 01/17/17 00:35 Urine Blood Neg (Negative) 01/17/17 00:35 Urine Nitrite Neg (Negative) 01/17/17 00:35 Urine Bilirubin Neg (Negative) 01/17/17 00:35 Urine Urobilinogen 4.0 mg/dL (<2.0) 01/17/17 00:35 Ur Leukocyte Esterase Neg (Negative) 01/17/17 00:35 Urine WBC (Auto) < 1.0 /HPF (0.0-6.0) 01/17/17 00:35 Urine RBC (Auto) < 1.0 /HPF (0.0-6.0) 01/17/17 00:35 U Epithel Cells (Auto) < 1.0 /HPF (0-13.0) 01/17/17 00:35 Urine Mucus 3+ /HPF 01/17/17 00:35 Salicylates < 0.3 mg/dL (2.8-20.0) L 01/17/17 00:16 Urine Opiates Screen Presumptive negative 01/17/17 00:35 Urine Methadone Screen Presumptive negative 01/17/17 00:35 Acetaminophen < 15.0 ug/mL (10.0-30.0) 01/17/17 00:16 Ur Barbiturates Screen Presumptive negative 01/17/17 00:35 Ur Phencyclidine Scrn Presumptive negative 01/17/17 00:35 Ur Amphetamines Screen Presumptive negative 01/17/17 00:35 U Benzodiazepines Scrn Presumptive negative 01/17/17 00:35 Urine Cocaine Screen Presumptive negative 01/17/17 00:35 U Marijuana (THC) Screen Presumptive negative 01/17/17 00:35 Drugs of Abuse Note Disclamer 01/17/17 00:35 Plasma/Serum Alcohol < 0.01 gm% (0-0.07) 01/17/17 00:16
[2017-01-27] MEDS: REMERON PO SCH (23:44)
[2017-01-27] MEDS: ARICEPT PO SCH (23:45)
[2017-01-28 09:22] VITALS: BP 109/78
--- NOTE | 2017-01-28 10:24 | Discharge Summary ---
Providers - Providers Date of Admission: 01/17/17 02:35 Attending physician: JAYLEN SAMUEL MD 01/18/17 08:10 Consult to Physician [CONS] Routine Consulting Provider: GENA RIOS Reason For Exam: psychosis Place consult to:: YOLA Notified:: YOLA Phone number called:: [phone] 01/19/17 11:20 Speech Therapy Evaluation and Treat [CONS] Routine Reason For Exam: dysphagia Primary care physician: PACO GUZMAN Hospitalization Reason for admission: ams Condition: Stable Hospital course: This is a 66-year-old Afro-Honduran male presents the emergency department from home with complaint of a unresponsive episode in which the patient was awake with eyes open but was nonverbal and not following commands to his . The patient does have a history of dementia but usually is AAO 1-2. He appears to have gone back towards his normal baseline mental status upon presentation to the hospital. There were no complaints of any fever but the patient did present with a low-grade fever. Due to the patient's current medical status and his history of dementia he is a poor historian himself. The patient was recently here 2-3 days ago when the was having trouble getting him to eat enough food and therefore also take his medications. Before that the patient had been at [facility] for behavioral disturbances. patient was evaluated by psych and once again recommended placement which the family declined. no other medical findings were noted. the patient was treated with emperic antibiotic that was susbsequently discontinued and is stable for discharge. Family refusing to the patient placed in a senior care facility with dementia unit which is probably appropriate for this patient considering the duration of this event. Acute Metabolic encephalopathy Dementia with behavioral disturbance with possible superimposed delirium SIRS Secondary to no infectious causes Peritoneal irritation Disposition: [id number] HOME UNDER HOME HL Time spent for discharge: 35 MINS Core Measure Documentation - Palliative Care Palliative Care/ Comfort Measures: Not Applicable - Core Measures Any of the following diagnoses?: none - VTE Discharge Requirements Deep Vein Thrombosis/Pulmonary Embolism Present on Admission: No Exam - Physical Exam Narrative exam: VITAL SIGNS: Reviewed. GENERAL: The patient appeared well nourished and normally developed. Vital signs as documented. HEAD: No signs of head trauma. EYES: Pupils are equal. Extraocular motions intact. EARS: Hearing grossly intact. MOUTH: Oropharynx is normal. NECK: No adenopathy, no JVD. CHEST: Chest with clear breath sounds bilaterally. No wheezes, rales, or rhonchi. CARDIAC: Regular rate and rhythm. S1 and S2, without murmurs, gallops, or rubs. VASCULAR: No Edema. Peripheral pulses normal and equal in all extremities. ABDOMEN: Soft, without detectable tenderness. No sign of distention. No rebound or guarding, and no masses palpated. Bowel Sounds normal. MUSCULOSKELETAL: Good range of motion of all major joints. Extremities without clubbing, cyanosis or edema. NEUROLOGIC EXAM: Alert and oriented x to person only speech noncoherent.. No focal sensory or strength deficits. Follows commands. PSYCHIATRIC: Mood normal. SKIN: No rash or lesions. - Constitutional Vitals: Temp Pulse Resp BP Pulse Ox 97.7 F 70 18 109/78 98 01/28/17 09:21 01/28/17 09:21 01/28/17 09:21 01/28/17 09:21 01/27/17 22:00 Plan Activity: advance as tolerated Diet: regular, per dietitian instruction Special Instructions: record daily weights, record daily BP diary Follow up with: PRIMARY CARE, [Referring] - 3-5 Days MORRIS RIOS MD [Staff Physician] - 7 Days Prescriptions: Mirtazapine [Remeron] 7.5 mg PO QHS #30 tablet Haloperidol [Haldol] 1 mg PO BID #30 tablet Memantine Xr [Namenda Xr] 14 mg PO QDAY #30 cap
[2017-01-28] MEDS: HALDOL PO SCH (10:50)
[2017-01-28] MEDS: HEPARIN SUB-Q SCH (10:50)
[2017-01-28] MEDS: PEPCID PO SCH (10:50)
[2017-01-28] MEDS: NAMENDA XR PO SCH (10:50)
--- NOTE | 2017-01-28 11:51 | Query-Altered Level of Consc. ---
Filiberto Ortiz Date:_01/28/2017 [facility]/CDS:___Alesha Phone#:__[phone] Exercise your independent professional judgment when responding to this query. Questions asked do not imply a particular answer is desired or expected. We greatly appreciate your clarification on this issue. Clinical Documentation States: 66 Year old male was admitted with complaint of a unresponsive episode in which the patient was awake with eyes open but was nonverbal and not following commands to his . The Discharge summary states "Acute encephalopathy - Resolved - could be due to dementia." Please provide an appropriate diagnosis clarifying the Etiology and Acuity of this clinical scenario: [ ] Metabolic Encephalopathy [ ] Toxic Encephalopathy [ ] Toxic - Metabolic Encephalopathy [ ] Septic Encephalopathy with Sepsis [ ] Septic Encephalopathy without Sepsis [ ] Acute Hepatic Encephalopathy [ ] Subacute Hepatic Encephalopathy [ ] Encephalopathy [ ] Other: [ ] Unable To Determine [ ]Comment/Explanation: Present on Admission: [ ] Yes (Y) [ ] Clinically undeterminable (W) [ ] No (N) Please also document response in your Progress Notes and/or Discharge Summary and indicate if the condition was present on admission. MTDD
== END 2017-01-28 13:22 | disposition home health service (06) | DRG 371 ==
LOC: ED 23:14 → CC2 01-17 02:35
PROVIDERS: ADMIT Internal Medicine; ATTEND Internal Medicine
DX: K65.9 Peritonitis, unspecified (principal); G93.41 Metabolic encephalopathy; F03.91 Unspecified dementia, unspecified severity, with behavioral disturbance; R65.10 Systemic inflammatory response syndrome (SIRS) of non-infectious origin without acute organ dysfunction; E87.2 Acidosis; F05 Delirium due to known physiological condition; Z86.73 Personal history of transient ischemic attack (TIA), and cerebral infarction without residual deficits
CPT/HCPCS: 36415; 70450; 71010; 80048; 80053; 80307; 80320; 81001; 82140; 82962; 83735; 84443; 85007; 85025; 85027; 87040; 87086; 93005; 93010; 96365; 96375; G0480; G8996-GN; G8997-GN; G8998-GN; J1630; J1644; J1956; J2060; J2543; J3370; J7030; J7040; J7050